=== PATIENT | female | born 1980 | race Caucasian/White ===

== ENCOUNTER 2022-05-28 10:07 | Inpatient (IN) ==
[2022-05-28] MEDS ORDERED: cefTRIAXone SODIUM 1,000 MG/50 ML BAG IV STA (11:03)
[2022-05-28 11:04] LABS: Basophils # (auto) 0.02 K/uL (0-0.2); Basophils % (auto) 0.2 %; Eosinophils # (auto) 0.04 K/uL (0-0.50); Eosinophils % (auto) 0.4 %; Hematocrit (blood only) 36.8 % (34.1-44.9); Hemoglobin 12.7 g/dl (12.0-16.0); Immature Granulocytes # (auto) 0.06 K/uL (0.00-0.02); Immature Granulocytes % (auto) 0.6 %; Lymphocytes # (auto) 1.95 K/uL (1.2-3.4); Mean Corpuscular Hemoglobin 30.3 pg (25.0-34.0); Mean Corpuscular Hgb Conc 34.5 g/dL (32.0-36.0); Mean Corpuscular Volume 87.8 fL (80.0-100.0); Mean Platelet Volume 10.3 fL (9.4-12.3); Monocytes # (auto) 0.45 K/uL (0.24-0.82); Monocytes % (auto) 4.4 %; Neutrophils # (auto) 7.73 K/uL (1.4-6.5); Neutrophils % (auto) 75.4 %; Platelet Count 357 K/uL (130-400); RDW Coefficient of Variation 13.1 % (11.5-14.5); RDW Standard Deviation 41.4 fL (36.4-46.3); Red Blood Count 4.19 M/uL (3.93-5.22); White Blood Count 10.25 K/ul (4.8-10.8)
[2022-05-28 11:31] LABS: BUN Creatinine Ratio 12.1 (10-20); Calcium 9.4 mg/dl (8.5-10.1); Creatinine Clr Calc Pharmacy 85.7 ml/min; Est GFR (African American) 92.1 ml/min; Est GFR (Non-African American) 79.5 ml/min; Potassium 4.3 mmol/L (3.5-5.1)
[2022-05-28 11:33] LABS: Troponin I High Sensitivity 15.6 pg/ml (0-14)
[2022-05-28 11:43] LABS: Albumin Level 3.9 gm/dl (3.4-5.0); Bilirubin,Total 0.5 mg/dl (0.2-1.0); Globulin 3.8 gm/dl (2.5-4.0); Magnesium 1.8 mg/dl (1.7-2.4); Phosphorus 1.3 mg/dl (2.5-4.9); Total Protein 7.7 gm/dl (6.0-8.3)
--- NOTE | 2022-05-28 11:49 | XRay Report ---
XR chest 1V portable CLINICAL HISTORY: Dysrhythmia. COMPARISON STUDY: No previous studies for comparison. TECHNIQUE: 1 view of the chest FINDINGS: Single frontal view of the chest demonstrates the cardiomediastinal silhouette to be within normal li mits. The lungs are clear of alveolar opacities. There is no evidence for pleural effusion. There is no evidence for vascular congestion. There is no acute osseous pathology. IMPRESSION: 1. No acute cardiopulmonary disease. ACT 112: Negative or not required by law. Electronically signed by: sIaac Villaseñor M.D. 05/28/2022 11:48 AM
[2022-05-28] MEDS ORDERED: SODIUM PHOSPHATE 21 MMOL in DEXTROSE 5% 500 ML IV STA (11:52)
[2022-05-28 11:59] LABS: D Dimer 750 ug/L FEU (0-500); Lyme Ab IgM w/WB Rflx Positive (Negative)
[2022-05-28 12:00] LABS: Lyme Ab IgG w/WB Rflx Positive (Negative)
--- NOTE | 2022-05-28 12:23 | History & Physical Report ---
Date of Service May 28, 2022 Assessment & Plan (1) Syncope: (2) Complete heart block by electrocardiogram: (3) Elevated troponin: (4) Hypophosphatemia: (5) Elevated LFTs: (6) Positive Lyme disease serology: Plan This is a 41 yr old F who has significant PMH of pre diabetes and subclinical hypothyroidism who presents to ED 2/2 to syncope x 1 day. Patient initially traveled to [place] 1 month ago. 1 week into trip developed symptoms concerning for facial cellulitis, swelling, pain to face and right temporal region as well as eye pain. Initially she was treated with a course of Bactrim. She followed up in clinic yesterday due to persistent swelling to right side of neck and off-and-on fevers. Initial Lyme screen at this visit was positive. Today she was out walking her dog when she sustained a syncopal episode and therefore presented to ED. Syncope Heart Block Positive Lyme Serology Admit to PCU cardiology consulted obtain echocardiogram cycle trops CTA chest and neck pending it does appear pt has had an infectious process preceding her sx of syncope and heart block; however no distinctive features of lyme other than fever, no true erythema migrans, arthralgia other tick born disease pending including Anaplasma, Babesia, alpha gal and varicella tick panel pending in [facility] from 05/27 as well Covid screen ordered tx empirically with 2g IV Rocephin daily APAP prn fever pacer pads in place Abnormality on CT neck and chest Right paratracheal soft tissue density Right paratracheal soft tissue density/inflammatory change without focal lymphadenopathy. In setting of recent infectious illness will monitor closely she will need repeat CT neck/check in 3 months consider autoimmune work up if persists Hypophosphatemia replace with sodium phosphate in ED repeat at 1800 and in a.m. Elevated LFTS likely reactive in setting of underlying infectious process, possibly lyme obtain acute hep panel Pre diabetes a1c 5.8 05/24/21 a1c in a.m. monitor fasting glucose for now DVT ppx: SQ Lovenox Dispo: PCU FULL CODE PCP: Bobo Brambila Pt was seen and examined in collaboration with Dr. Monteiro, please see addendum History of Present Illness Chief Complaint: Syncope x 1 day. Primary Care Provider: Bobo Brambila, DO This is a 41 yr old F who has significant PMH of pre diabetes and subclinical hypothyroidism who presents to ED 2/2 to syncope x 1 day. 1 month ago she was in [place]. Her sx started while in [place] about a week into the trip. She developed swelling, redness, pain to R face/neck, tenderness to pain in R temporal region and swelling of neck. She also complains of sensitivity to light and pain with moving eye to L. She was placed on bactrim due to concern for MRSA which helped with swelling, but was told to stop this yesterday. She has had persistent lymphadenopathy to right Neck. She has been having off and on low grade fever, tmax 100.8. Last fever was 2-3 days ago. Fever tends to occur in evening. She also has pain to neck moving side to side but not flexion/extension. For the past week she has been having SOB with exertion. She denies any swelling to legs. She denies any rash. She did have a red, flat rash on L anterior thigh but was not bullet like. This resolved on own and she feels was related to the sun. She denies any current N/V but 3 weeks ago she did have n/v. Today she passed out in the grass when out with her dog. She is unsure how long. It was unwitnessed. She woke up on own and wasn't quite sure where sure was or what happened. Denies incontinence of bowel or bladder. Denies any pre syncope of lightheaded/dizzy. She has hx of pre diabetes and subclinical hypothyroidism. She does not take any meds for this. Other than travel to [place] she denies any recent travel to [place] or [place]. She did recently travel to and from [place] so was sitting for prolonged period. She denies any chills or sweats, chest pain, palpitations, URI sx, n/v/d, abd, dysuria, increased urg/freq with urination, melena or hematochezia. She denies possibility of as she had her period 1 week ago and was normal for her. Also her had a vasectomy and they have not been sexually active with since last period. 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 Allergies Allergy/AdvReac Type Severity Reaction Status Date / Time No Known Allergies Allergy Unknown Verified 05/28/22 12:01 Home Medications Medication Instructions Recorded Confirmed Type acetaminophen 500 mg tablet 500 mg PO Q6H PRN Pain 05/28/22 05/28/22 History sulfamethoxazole 800 1 tab PO BID 05/28/22 05/28/22 History mg-trimethoprim 160 mg tablet Past Med/Surg History Medical History Pre-diabetes Subclinical hypothyroidism Surgical History No pertinent past surgical history Family History Grandfather Coronary heart disease Social History Smoking Status: Never smoker Hx Alcohol Use: Yes Alcohol Intake Frequency: 2-4 x/Month Hx Substance Use: No Preferred Language: Vincentian Communication Ability: Effective marital status: Current Living Situation: Spouse current occupational status: employed current occupation: paraprofessional at [employer] Feels Safe at Home: Yes Review of Systems Review of Systems: All systems reviewed & are unremarkable except as noted in HPI & below Physical Exam Physical Exam: please refer to Dr. Monteiro addendum for physical exam findings Results & Data Results & Data ([facility]) Vital Signs (Past 12 Hours) Vital Signs Temp Pulse Resp BP Pulse Ox O2 Del Method 05/28/22 11:01 58 L 17 96/69 L 99 05/28/22 10:30 57 L 109/71 100 05/28/22 10:24 59 L 116/59 L 99 05/28/22 10:37 100 Room Air 05/28/22 10:10 36.4 C L 61 17 106/68 100 Room Air Diagnostic Findings Chest X-Ray 05/28/22 10:52 XR chest 1V portable CLINICAL HISTORY: Dysrhythmia. COMPARISON STUDY: No previous studies for comparison. TECHNIQUE: 1 view of the chest FINDINGS: Single frontal view of the chest demonstrates the cardiomediastinal silhouette to be within normal limits. The lungs are clear of alveolar opacities. There is no evidence for pleural effusion. There is no evidence for vascular congestion. There is no acute osseous pathology. IMPRESSION: 1. No acute cardiopulmonary disease. ACT 112: Negative or not required by law. Electronically signed by: Isaac Villaseñor M.D. 05/28/2022 11:48 AM Chest CTA 05/28/22 12:01 CHEST CTA for PULMONARY ARTERIES CT DOSE: 661.97 mGy.cm HISTORY: Progressive shortness of breath. PE TECHNIQUE: Multiaxial CT images of the chest were performed following the intravenous administration of contrast to evaluate the pulmonary arteries. Maximal intensity projection images were also obtained. A dose lowering technique was utilized adhering to the principles of ALARA. COMPARISON STUDY: Chest 05/28/2022. FINDINGS: Limited views of the upper abdomen demonstrate normal liver and sp salvatore. The thyroid gland enhances normally. Normal esophagus. The heart is normal in size. No pleural or pericardial effusions. There is mild ill-defined right paratracheal soft tissue density/inflammatory change without focal lymphadenopathy. No associated mass effect. No hilar lymphadenopathy. Normal caliber thoracic aorta with no evidence for dissection. No filling defects within the pulmonary arteries to suggest a pulmonary embolus. No fractures within the visualized osseous structures. The central airways are patent. No focal lung consolidations to suggest pneumonia. IMPRESSION: 1. No evidence for pulmonary embolus. 2. Mild ill-defined right paratracheal soft tissue density/inflammatory change without focal lymphadenopathy. No associated mass effect. This is nonspecific and could be due to a mediastinitis. Infiltrative soft tissue could also have a similar appearance. Therefore, [address] follow-up recommended to ensure resolution of this abnormality. ACT 112: Positive. There are findings on this exam that require communication between the performing entity and the patient following Patient Test Result Information Act ([place] Act 112) guidelines. Electronically signed by: Florentin Lux M.D. 05/28/2022 1:45 PM Soft Tissue Neck CT 05/28/22 12:24 CT SCAN OF THE NECK WITH IV CONTRAST CLINICAL HISTORY: Lymphadenopathy. COMPARISON STUDY: No priors. TECHNIQUE: Following the IV administration of 120 cc of Optiray 320, CT scan of the soft tissues of the neck was performed from the skull base to the upper chest. Images are reviewed in the axial, sagittal, and coronal planes. IV contrast was administered without complication. A dose lowering technique was utilized adhering to the principles of ALARA. FINDINGS: Pharynx: The pharyngeal soft tissues are normal as visualized. The pharyngeal airway is widely patent. There is no evidence of mass lesion. The vocal cords are symmetric. The parapharyngeal fat is well maintained. The prevertebral/retropharyngeal soft tissues are within normal limits. The epiglottis is normal. Lymphadenopathy: There are numerous shotty cervical lymph nodes. These are not pathologically enlarged by size criteria and measure up to 10 mm in length. Thyroid: Normal in size and attenuation. Salivary glands: The parotid and submandibular glands are within normal limits. Brain parenchyma: The visualized brain parenchyma at the skull base is normal in appearance. Vascular structures: The carotid arteries and jugular veins are patent bilaterally. Skeletal structures: Imaged portions of the calvarium at the skull base are within normal limits. The cervical spine appears intact. Sinuses and mastoids: There is trace mucosal thickening within the maxillary antra. The remaining visualized paranasal sinuses are clear. The mastoid air cells are well pneumatized. Upper chest: Visualized apical lung parenchyma is clear. Infiltration is noted in the superior mediastinum to the level of the thoracic outlet. IMPRESSION: 1. Nonspecific soft tissue and inflammation is seen in the superior mediastinum to the level of the thoracic outlet. This could be seen in the setting of mediastinitis. Clinical correlation will be essential. 2. Numerous shotty cervical lymph nodes are nonspecific and likely reactive. Clinical follow-up to resolution is recommended. If these lymph nodes fail to resolve Realtime course then a repeat examination should be performed. 3. No pathologically enlarged cervical lymph nodes are identified. 4. The pharyngeal soft tissues are normal as visualized. ACT 112: Negative or not required by law. Electronically signed by: Yordan Langford M.D. 05/28/2022 1:41 PM Medications Administered Medication List Sodium Phosphate 21 mmol/ (Dextrose) 507 mls @ 88 mls/hr IV NOW STA Stop: 05/28/22 17:37 Last Admin: 05/28/22 12:08 Dose: 88 mls/hr Documented By: NIKI Discontinued Medications Ceftriaxone Sodium (Rocephin) 1,000 mg in 50 mls @ 100 mls/hr IV NOW STA Stop: 05/28/22 11:32 Last Infusion: 05/28/22 12:13 Dose: 0 mls/hr Documented By: Admin: 05/28/22 11:35 Dose: 100 mls/hr Documented By: NIKI ECG Rate (beats per minute): 51 Rhythm: normal sinus Findings: + complete heart block and + T-wave inversion Additional Comments: wide qrs COVID-19 Results Results COVID-19 Adm Lab Results: RBC 4.19 M/uL (3.93-5.22) 05/28/22 WBC 10.25 K/ul (4.8-10.8) 05/28/22 Hgb 12.7 g/dl (12.0-16.0) 05/28/22 Hct 36.8 % (34.1-44.9) 05/28/22 Plt Count 357 K/uL (130-400) 05/28/22 Neutrophils (%) (Auto) 75.4 % 05/28/22 Lymphocytes (%) (Auto) 19.0 % 05/28/22 Monocytes # (Auto) 0.45 K/uL (0.24-0.82) 05/28/22 Eosinophils # (Auto) 0.04 K/uL (0-0.50) 05/28/22 Immature Granulocyte % (Auto) 0.6 % 05/28/22 Neutrophils # (Auto) 7.73 K/uL (1.4-6.5) H 05/28/22 Lymphocytes # (Auto) 1.95 K/uL (1.2-3.4) 05/28/22 Monocytes # (Auto) 0.45 K/uL (0.24-0.82) 05/28/22 Eosinophils # (Auto) 0.04 K/uL (0-0.50) 05/28/22 Basophils # (Auto) 0.02 K/uL (0-0.2) 05/28/22 Immature Granulocyte # (Auto) 0.06 K/uL (0.00-0.02) H 05/28 Na 134 mmol/L (136-145) L 05/28/22 K 4.3 mmol/L (3.5-5.1) 05/28/22 Cl 102 mmol/L (98-107) 05/28/22 CO2 21 mmol/L (21-32) 05/28/22 Anion Gap 11 (3-11) 05/28/22 BUN 11 mg/dl (6-23) 05/28/22 Creatinine 0.91 mg/dl (0.6-1.2) 05/28/22 BUN/Creatinine Ratio 12.1 (10-20) 05/28/22 Glucose Level 138 mg/dl (70-99(Fasting)) H 05/28/22 Ca 9.4 mg/dl (8.5-10.1) 05/28/22 Phosphorus Level 1.3 mg/dl (2.5-4.9) L* 05/28/22 Total Bilirubin 0.5 mg/dl (0.2-1.0) 05/28/22 AST/SGOT 61 U/L (13-39) H 05/28/22 ALT/SGPT 78 U/L (7-52) H 05/28/22 Alkaline Phosphatase 156 U/L (34-104) H 05/28/22 Total Protein 7.7 gm/dl (6.0-8.3) 05/28/22 Albumin 3.9 gm/dl (3.4-5.0) 05/28/22 Globulin 3.8 gm/dl (2.5-4.0) 05/28/22 Albumin/Globulin Ratio 1.0 (0.9-2) 05/28/22 D-Dimer 750 ug/L FEU (0-500) H* 05/28/22 SARS-CoV-2, RNA, NAAT NEGATIVE (NEGATIVE) 05/28/22 Chest X-Ray 05/28/22 Code Status & VTE Plan Code Status FULL CODE Supervising Physician Co-Signing Physician Notes Pt is a 41 y/o F with hx of subclinical hypothyroidism, prediabetes admitted for syncope with bradycardia. PE: NAD, well developed HEENT: EOMI, PERRLA, no palpable lymph nodes, normal thyroid exam, lower neck did appear swollen but symmetrical Lungs: CTA, no wheezing, or crackles Card: Normal S1/S2, no murmur Abd: ND, NT, soft MSK: no LE edema Neuro: CN II-XII intact, normal motor strength Psych: AAOx3, normal affect A/P: Syncope with Bradycardia: -currently pt is asymptomatic with normal BP -EKG showed possible second degree heart block -likely due to an infection --- per pt she had R sided neck swelling/erythema with daily low grade fever few weeks ago -pending lyme, anaplasmosis, A.Phag ---- for now will treat for lyme disease with ceftriaxone 2g q24 -CTA chest/neck: no PE --- will do repeat scan in 3 months to evaluate R paratracheal soft tissue density/inflammatory change --- depending on pt's response to abx and infection work up results will consider autoimmune work as inpt vs outpt -normal TSH -replete phos and trend LFTs -Cardiology consulted -will obtain echo -admit to PCU with tele Other chronic conditions: plan as above Agree with A/P by Nickie Sims PA-C
[2022-05-28] MEDS ORDERED: OPTIRAY 320 125ml IV ONE (13:20)
--- NOTE | 2022-05-28 13:22 | Cardiology Consultation ---
Date of Consultation May 28, 2022 Assessment & Plan (1) Complete heart block by electrocardiogram: Plan Patient is a 41-year-old female without prior history of cardiac disease presents now with recent symptoms of cellulitis and erysipelas of the right face and neck with residual lymphadenopathy and tenderness. Patient sought evaluation for persistent symptoms and low-grade fever yesterday. Initial IgM Lyme screen positive yesterday and today. Patient presents now after above findings and transient syncopal event this morning while walking dog. EKG and telemetry demonstrates sinus rhythm with third-degree heart block with ventricular escape rhythm approximately 50 bpm Patient has pending CTA Recommendations: Extend CT scan to include right neck and carotids exclude carotid compression, vagal nerve impairment Blood cultures given recent infectious course Empiric treatment of Lyme disease to begin immediately External pacemaker patches already in place, no current indications for transvenous pacer insertion given adequate heart rate and hemodynamic stability Continuous telemetry Echocardiogram ordered we will review. Preliminary images from CT and chest x-ray do not suggest pericardial effusion History of Present Illness Reason for Consultation: Third-degree AV block, syncope Requesting Physician: Dr. Richard History of Present Illness Patient is a 41-year-old female with recent complex history but no prior history of cardiac disease. She presented on 05/04/2022 having recently returned from a trip to [place] with noted symptoms of marked facial erythema and swelling right neck lymphadenopathy. Patient was treated empirically for possible MRSA infection with oral Bactrim DS with slow improvement of facial issues but persistent lymphadenopathy of the right neck. Reevaluated yesterday in outpatient clinic for persistent symptoms of neck fullness low-grade fevers with laboratory panel notable for positive Lyme screen. Patient this morning was walking her dog and had a transient syncopal event and presented to the ER for further evaluation. Patient uncertain of length of unconsciousness notes no injury or bowel or bladder incontinence. Has felt weak fatigued and short of breath times greater than 1 week. She denies prior history of rheumatic fever scarlet further. Noted possible murmur as a teenager. No prior history of syncope or near syncope. No chest pains or edema or orthopnea No history of hypertension, diabetes mellitus, TIA or stroke. No history of renal or hepatic disease Notes no noted tick exposure but multiple opportunities for such walks dog with multiple ticks on dog and common in the area where she lives EKG on presentation sinus rhythm at 70 bpm with third-degree AV block, ventricular escape rhythm at 58 bpm Chest x-ray with normal size cardiac silhouette without infiltrate Allergies Allergy/AdvReac Type Severity Reaction Status Date / Time No Known Allergies Allergy Unknown Verified 05/28/22 12:01 Home Medications Medication Instructions Recorded Confirmed Type acetaminophen 500 mg tablet 500 mg PO Q6H PRN Pain 05/28/22 05/28/22 History sulfamethoxazole 800 1 tab PO BID 05/28/22 05/28/22 History mg-trimethoprim 160 mg tablet Patient History Medical History Pre-diabetes Subclinical hypothyroidism Surgical History No pertinent past surgical history Family History Grandfather Coronary heart disease Social History Smoking Status: Never smoker Hx Alcohol Use: Yes Alcohol Intake Frequency: 2-4 x/Month Hx Substance Use: No Preferred Language: Cymro Communication Ability: Effective marital status: Current Living Situation: Spouse current occupational status: employed current occupation: paraprofessional at [employer] Feels Safe at Home: Yes Review of Systems 2 Review of Systems: All systems reviewed & are unremarkable except as noted in HPI & below Physical Exam Constitutional: + ill appearing; no acute distress Eyes: PERRL, conjunctivae normal, anicteric sclerae ENMT: Right neck lymphadenopathy, tenderness Neck: trachea midline, no thyromegaly Respiratory: normal respiratory effort, lungs clear to auscultation Cardiovascular: Rate/Rhythm: regular rate Heart Sounds: normal S1 and normal S2; no murmur Vessels: no JVD Extremities: no edema Gastrointestinal (Abdomen): normal bowel sounds, soft, nontender, no hepatosplenomegaly Musculoskeletal: no cyanosis or clubbing, extremities motor strength 5/5 Psychiatric: A+Ox3, euthymic affect Results & Data ([facility]) Vital Signs (Past 12 Hours) Vital Signs Temp Pulse Resp BP Pulse Ox O2 Del Method 05/28/22 13:00 50 L 17 99 05/28/22 13:00 109/70 05/28/22 12:30 51 L 15 94 05/28/22 12:00 53 L 20 112/67 05/28/22 11:40 55 L 20 107/68 05/28/22 11:01 58 L 17 96/69 L 99 05/28/22 10:30 57 L 109/71 100 05/28/22 10:24 59 L 116/59 L 99 05/28/22 10:37 100 Room Air 05/28/22 10:10 36.4 C L 61 17 106/68 100 Room Air Laboratory Results Laboratory Results - last 24 hr 05/28/22 05/28/22 05/28/22 10:33 10:33 10:33 WBC 10.25 RBC 4.19 Hgb 12.7 Hct 36.8 MCV 87.8 MCH 30.3 MCHC 34.5 RDW Std Deviation 41.4 RDW Coeff of Armida 13.1 Plt Count 357 MPV 10.3 Immature Gran % (Auto) 0.6 Neut % (Auto) 75.4 Lymph % (Auto) 19.0 Lynn % (Auto) 4.4 Eos % (Auto) 0.4 Baso % (Auto) 0.2 Neut # (Auto) 7.73 H Lymph # (Auto) 1.95 Lynn # (Auto) 0.45 Eos # (Auto) 0.04 Baso # (Auto) 0.02 Immature Gran # (Auto) 0.06 H D-Dimer Sodium 134 L Potassium 4.3 Chloride 102 Carbon Dioxide 21 Anion Gap 11 BUN 11 Creatinine 0.91 Est Cr Clr Drug Dosing 85.7 Est GFR ( Amer) 92.1 Est GFR (Non-Af Amer) 79.5 BUN/Creatinine Ratio 12.1 Glucose 138 H Calcium 9.4 Phosphorus 1.3 L* Magnesium 1.8 Total Bilirubin 0.5 AST 61 H ALT 78 H Alkaline Phosphatase 156 H Troponin I High Sens 15.6 H Total Protein 7.7 Albumin 3.9 Globulin 3.8 Albumin/Globulin Ratio 1.0 Vtqlbcrcv-w-9,3-Gal IgE TSH 4.087 Beef Allergen IgE Ab Beef ASM Class Leblanc ASM Class Leblanc/Mutton IgE Interp Pork Allergen IgE Ab Pork ASM Class Anaplasma Smear A. phagocytophilum DNA Babesia Smear Babesia microti IgG Ab Babesia microti IgM Ab Babesia microti DNA PCR Babesia Interpretation Lyme Disease IgG Ab Lyme IgG (Western Blot) Lyme IgG 18 kDa Band Lyme IgG 23 kDa Band Lyme IgG 28 kDa Band Lyme IgG 30 kDa Band Lyme IgG 39 kDa Band Lyme IgG 41 kDa Band Lyme IgG 45 kDa Band Lyme IgG 58 kDa Band Lyme IgG 66 kDa Band Lyme IgG 93 kDa Band Lyme IgM Ab (WB) Lyme Disease IgM Ab Lyme IgM 23 kDa Band Lyme IgM 39 kDa Band Lyme IgM 41 kDa Band SARS-CoV-2, RNA, NAAT VZV IgG Antibody VZV IgM Antibody 05/28/22 05/28/22 05/28/22 10:33 10:33 10:33 WBC RBC Hgb Hct MCV MCH MCHC RDW Std Deviation RDW Coeff of Armida Plt Count MPV Immature Gran % (Auto) Neut % (Auto) Lymph % (Auto) Lynn % (Auto) Eos % (Auto) Baso % (Auto) Neut # (Auto) Lymph # (Auto) Lynn # (Auto) Eos # (Auto) Baso # (Auto) Immature Gran # (Auto) D-Dimer 750 H* Sodium Potassium Chloride Carbon Dioxide Anion Gap BUN Creatinine Est Cr Clr Drug Dosing Est GFR ( Amer) Est GFR (Non-Af Amer) BUN/Creatinine Ratio Glucose Calcium Phosphorus Magnesium Total Bilirubin AST ALT Alkaline Phosphatase Troponin I High Sens Total Protein Albumin Globulin Albumin/Globulin Ratio Adegffpmd-g-6,3-Gal IgE TSH Beef Allergen IgE Ab Beef ASM Class Leblanc ASM Class Leblanc/Mutton IgE Interp Pork Allergen IgE Ab Pork ASM Class Anaplasma Smear A. phagocytophilum DNA Babesia Smear Babesia microti IgG Ab Babesia microti IgM Ab Babesia microti DNA PCR Babesia Interpretation Lyme Disease IgG Ab Positive A Lyme IgG (Western Blot) Pending Lyme IgG 18 kDa Band Pending Lyme IgG 23 kDa Band Pending Lyme IgG 28 kDa Band Pending Lyme IgG 30 kDa Band Pending Lyme IgG 39 kDa Band Pending Lyme IgG 41 kDa Band Pending Lyme IgG 45 kDa Band Pending Lyme IgG 58 kDa Band Pending Lyme IgG 66 kDa Band Pending Lyme IgG 93 kDa Band Pending Lyme IgM Ab (WB) Pending Lyme Disease IgM Ab Positive A Lyme IgM 23 kDa Band Pending Lyme IgM 39 kDa Band Pending Lyme IgM 41 kDa Band Pending SARS-CoV-2, RNA, NAAT VZV IgG Antibody VZV IgM Antibody 05/28/22 05/28/22 05/28/22 12:37 12:37 12:37 WBC RBC Hgb Hct MCV MCH MCHC RDW Std Deviation RDW Coeff of Armida Plt Count MPV Immature Gran % (Auto) Neut % (Auto) Lymph % (Auto) Lynn % (Auto) Eos % (Auto) Baso % (Auto) Neut # (Auto) Lymph # (Auto) Lynn # (Auto) Eos # (Auto) Baso # (Auto) Immature Gran # (Auto) D-Dimer Sodium Potassium Chloride Carbon Dioxide Anion Gap BUN Creatinine Est Cr Clr Drug Dosing Est GFR ( Amer) Est GFR (Non-Af Amer) BUN/Creatinine Ratio Glucose Calcium Phosphorus Magnesium Total Bilirubin AST ALT Alkaline Phosphatase Troponin I High Sens Total Protein Albumin Globulin Albumin/Globulin Ratio Fdltpgvij-i-4,3-Gal IgE TSH Beef Allergen IgE Ab Beef ASM Class Leblanc ASM Class Leblanc/Mutton IgE Interp Pork Allergen IgE Ab Pork ASM Class Anaplasma Smear Pending A. phagocytophilum DNA Pending Babesia Smear Pending Babesia microti IgG Ab Babesia microti IgM Ab Babesia microti DNA PCR Pending Babesia Interpretation Lyme Disease IgG Ab Lyme IgG (Western Blot) Lyme IgG 18 kDa Band Lyme IgG 23 kDa Band Lyme IgG 28 kDa Band Lyme IgG 30 kDa Band Lyme IgG 39 kDa Band Lyme IgG 41 kDa Band Lyme IgG 45 kDa Band Lyme IgG 58 kDa Band Lyme IgG 66 kDa Band Lyme IgG 93 kDa Band Lyme IgM Ab (WB) Lyme Disease IgM Ab Lyme IgM 23 kDa Band Lyme IgM 39 kDa Band Lyme IgM 41 kDa Band SARS-CoV-2, RNA, NAAT VZV IgG Antibody VZV IgM Antibody 05/28/22 05/28/22 05/28/22 12:37 12:37 13:08 WBC RBC Hgb Hct MCV MCH MCHC RDW Std Deviation RDW Coeff of Armida Plt Count MPV Immature Gran % (Auto) Neut % (Auto) Lymph % (Auto) Lynn % (Auto) Eos % (Auto) Baso % (Auto) Neut # (Auto) Lymph # (Auto) Lynn # (Auto) Eos # (Auto) Baso # (Auto) Immature Gran # (Auto) D-Dimer Sodium Potassium Chloride Carbon Dioxide Anion Gap BUN Creatinine Est Cr Clr Drug Dosing Est GFR ( Amer) Est GFR (Non-Af Amer) BUN/Creatinine Ratio Glucose Calcium Phosphorus Magnesium Total Bilirubin AST ALT Alkaline Phosphatase Troponin I High Sens Total Protein Albumin Globulin Albumin/Globulin Ratio Ftofqybnu-l-0,3-Gal IgE Pending TSH Beef Allergen IgE Ab Pending Beef ASM Class Pending Leblanc ASM Class Pending Leblanc/Mutton IgE Interp Pending Pork Allergen IgE Ab Pending Pork ASM Class Pending Anaplasma Smear A. phagocytophilum DNA Babesia Smear Babesia microti IgG Ab Pending Babesia microti IgM Ab Pending Babesia microti DNA PCR Babesia Interpretation Pending Lyme Disease IgG Ab Lyme IgG (Western Blot) Lyme IgG 18 kDa Band Lyme IgG 23 kDa Band Lyme IgG 28 kDa Band Lyme IgG 30 kDa Band Lyme IgG 39 kDa Band Lyme IgG 41 kDa Band Lyme IgG 45 kDa Band Lyme IgG 58 kDa Band Lyme IgG 66 kDa Band Lyme IgG 93 kDa Band Lyme IgM Ab (WB) Lyme Disease IgM Ab Lyme IgM 23 kDa Band Lyme IgM 39 kDa Band Lyme IgM 41 kDa Band SARS-CoV-2, RNA, NAAT NEGATIVE VZV IgG Antibody Pending VZV IgM Antibody Pending Diagnostic Findings Lab work 05/27/2022: TSH normal at 3.44
[2022-05-28] MEDS ORDERED: cefTRIAXone SODIUM 1,000 MG in DEXTROSE 5% 50 ML IV ONE (13:30)
--- NOTE | 2022-05-28 13:37 | CT Scan Report ---
CT SCAN OF THE NECK WITH IV CONTRAST CLINICAL HISTORY: Lymphadenopathy. COMPARISON STUDY: No priors. TECHNIQUE: Following the IV administration of 120 cc of Optiray 320, CT scan of the soft tissues of t he neck was performed from the skull base to the upper chest. Images are reviewed in the axial, sagit darline, and coronal planes. IV contrast was administered without complication. A dose lowering techniq ue was utilized adhering to the principles of ALARA. FINDINGS: Pharynx: The pharyngeal soft tissues are normal as visualized. The pharyngeal airway is widely patent . There is no evidence of mass lesion. The vocal cords are symmetric. The parapharyngeal fat is well maintained. The prevertebral/retropharyngeal soft tissues are within normal limits. The epiglottis is normal. Lymphadenopathy: There are numerous shotty cervical lymph nodes. These are not pathologically enlarge d by size criteria and measure up to 10 mm in length. Thyroid: Normal in size and attenuation. Salivary glands: The parotid and submandibular glands are within normal limits. Brain parenchyma: The visualized brain parenchyma at the skull base is normal in appearance. Vascular structures: The carotid arteries and jugular veins are patent bilaterally. Skeletal structures: Imaged portions of the calvarium at the skull base are within normal limits. The cervical spine appears intact. Sinuses and mastoids: There is trace mucosal thickening within the maxillary antra. The remaining vis ualized paranasal sinuses are clear. The mastoid air cells are well pneumatized. Upper chest: Visualized apical lung parenchyma is clear. Infiltration is noted in the superior medias tinum to the level of the thoracic outlet. IMPRESSION: 1. Nonspecific soft tissue and inflammation is seen in the superior mediastinum to the level of the t horacic outlet. This could be seen in the setting of mediastinitis. Clinical correlation will be esse ntial. 2. Numerous shotty cervical lymph nodes are nonspecific and likely reactive. Clinical follow-up to re solution is recommended. If these lymph nodes fail to resolve Realtime course then a repeat examinati on should be performed. 3. No pathologically enlarged cervical lymph nodes are identified. 4. The pharyngeal soft tissues are normal as visualized. ACT 112: Negative or not required by law. Electronically signed by: Yordan Langford M.D. 05/28/2022 1:41 PM
--- NOTE | 2022-05-28 13:47 | CT Scan Report ---
CHEST CTA for PULMONARY ARTERIES CT DOSE: 661.97 mGy.cm HISTORY: Progressive shortness of breath. PE TECHNIQUE: Multiaxial CT images of the chest were performed following the intravenous administration of contrast to evaluate the pulmonary arteries. Maximal intensity projection images were also obtaine d. A dose lowering technique was utilized adhering to the principles of ALARA. COMPARISON STUDY: Chest 05/28/2022. FINDINGS: Limited views of the upper abdomen demonstrate normal liver and spleen. The thyroid gland e nhances normally. Normal esophagus. The heart is normal in size. No pleural or pericardial effusions. There is mild ill-defined right paratracheal soft tissue density/inflammatory change without focal l ymphadenopathy. No associated mass effect. No hilar lymphadenopathy. Normal caliber thoracic aorta wi th no evidence for dissection. No filling defects within the pulmonary arteries to suggest a pulmonar y embolus. No fractures within the visualized osseous structures. The central airways are patent. No focal lung consolidations to suggest pneumonia. IMPRESSION: 1. No evidence for pulmonary embolus. 2. Mild ill-defined right paratracheal soft tissue density/inflammatory change without focal lymphade nopathy. No associated mass effect. This is nonspecific and could be due to a mediastinitis. Infiltra tive soft tissue could also have a similar appearance. Therefore, [address] follow-up recommen ded to ensure resolution of this abnormality. ACT 112: Positive. There are findings on this exam that require communication between the performing entity and the patient following Patient Test Result Information Act ([place] Act 112) guidelines. Electronically signed by: Florentin Lux M.D. 05/28/2022 1:45 PM
--- NOTE | 2022-05-28 15:33 | Emergency Department Note ---
Impression & Plan Complete heart block by electrocardiogram, Positive Lyme disease serology, Syncope and collapse, Hypophosphatemia ED Provider Note CHIEF COMPLAINT: Shortness of breath HISTORY OF PRESENT ILLNESS: This 41-year-old female patient presents to the emergency department with complaints of shortness of breath over the last several days to weeks. Patient states she had a rash on the right side of her neck about 2 weeks ago. It does seem to be resolving at this time however she thinks the lymph nodes are persistently swollen. She was placed on Bactrim recently which she thinks may have helped the rash. Patient was seen by her PCP yesterday and had a chest x-ray performed some laboratory work. She looked on the portal today through [facility] and believes her Lyme tests are positive. Agustin carr denies any high fevers but states she has been cycling near 100 occasionally. She denies any coughing, abdominal pain, vomiting or diarrhea. REVIEW OF SYSTEMS: A review of systems was performed with positives and pertinent negatives listed in the history of present illness. 10 systems were reviewed and are otherwise negative. ALLERGIES: see below MEDICATIONS: see below PMH: see below SOCIAL HISTORY: see below DDx:Reactive airway disease, pneumonia, pneumothorax, COPD, CHF, infections, cardiac ischemia, pulmonary embolism, musculoskeletal, gastrointestinal, as well as other pathologies. PHYSICAL EXAM: Vital signs reviewed. General: Well-appearing 41-year-old female, in no significant distress. HEENT: No scleral icterus, PERRLA, neck supple. Atraumatic. Cardiovascular: Bradycardic and irregular Pulmonary: Clear to auscultation bilaterally, normal work of breathing. Abdomen: Soft, nontender, nondistended, positive bowel sounds. Musculoskeletal: Atraumatic, no peripheral edema. Neurologic: Patient awake alert and oriented x 3, speech is clear Lymph: Right greater than left cervical lymphadenopathy noted, no palpable fluctuance or mass. Skin: Warm, dry, no rash. EMERGENCY DEPARTMENT COURSE/MDM: This patient was evaluated and appeared to be in no significant distress. IV access was obtained and laboratory work was drawn. The patient was placed on the cardiac rehab nurse and noted to be in a third-degree heart block. There is some cervical lymphadenopathy noted on exam, the area of erythema around the right neck and ear that the patient described is no longer notable. Patient's blood pressure has remained stable. Laboratory work through the [facility] system was reviewed and her Lyme screen was positive. IgM and IgG are positive on today's labs. Phosphorus is noted to be markedly low. This was repleted intravenously. Patient was given IV ceftriaxone. D- dimer is noted to be elevated and a CT scan of the chest was ordered. Dr. Olivares has requested CT imaging of the soft tissue neck which was added. Patient's case was discussed with [facility] cardiology as well as the hospitalist service. MONITORING: An order for cardiac monitoring was placed and the patient is noted to be in a third-degree AV block at 57 beats per minute. RADIOLOGY: See below EKG: Sinus rhythm with complete heart block at a rate of 58 bpm. Rightward axis, possible previous septal infarct, T wave abnormality noted in the inferior and anterior leads. QTC is 451. No previous EKGs for comparison. DISPOSITION: Admission I have personally spent 40 minutes of critical care time in the direct management of this patient. This was a life/limb threatening event. This 40 minutes is in excess of all separately billable procedures. 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 Beliefs That Will Affect Care: None marital status: Current Living Situation: Spouse current occupational status: employed current occupation: paraprofessional at [employer] How many Children do You have: 2 Feels Safe at Home: Yes Assistive Devices: None Allergies Allergies Allergy/AdvReac Type Severity Reaction Status Date / Time No Known Allergies Allergy Unknown Verified 05/28/22 12:01 Home Meds Home Medications Medication Instructions Recorded Confirmed acetaminophen 500 mg tablet 500 mg PO Q6H PRN Pain 05/28/22 05/28/22 Previous Rx's Medication Instructions Recorded doxycycline hyclate 100 mg capsule 100 mg PO BID 14 days #28 caps 06/01/22 Results & Data (ED) Vital Signs Vital Signs - 24 hr 05/28/22 10:10 05/28/22 10:37 05/28/22 10:38 Temperature 36.4 C L Temperature Source Oral Pulse Rate 61 Pulse Rhythm Regular Respiratory Rate 17 Respiratory Effort / Characteristics Non-Labored Spontaneous Spontaneous Respiratory Depth Normal Respiratory Pattern Regular Blood Pressure 106/68 Blood Pressure Mean 80 Blood Pressure Position Sitting Pulse Oximetry 100 100 Oxygen Delivery Method Room Air Room Air Sepsis Recent Fever Within 48 Hours No Sepsis New/Unexplained Change in Mental Status No Sepsis Action Taken by Nursing No Action Required 05/28/22 10:24 05/28/22 10:30 05/28/22 11:01 Temperature Temperature Source Pulse Rate 59 L 57 L 58 L Pulse Rhythm Respiratory Rate 17 Respiratory Effort / Characteristics Respiratory Depth Respiratory Pattern Blood Pressure 116/59 L 109/71 96/69 L Blood Pressure Mean 78 83 78 Blood Pressure Position Pulse Oximetry 99 100 99 Oxygen Delivery Method Sepsis Recent Fever Within 48 Hours Sepsis New/Unexplained Change in Mental Status Sepsis Action Taken by Nursing 05/28/22 11:40 05/28/22 12:00 Temperature Temperature Source Pulse Rate 55 L 53 L Pulse Rhythm Respiratory Rate 20 20 Respiratory Effort / Characteristics Respiratory Depth Respiratory Pattern Blood Pressure 107/68 112/67 Blood Pressure Mean 81 82 Blood Pressure Position Pulse Oximetry Oxygen Delivery Method Sepsis Recent Fever Within 48 Hours Sepsis New/Unexplained Change in Mental Status Sepsis Action Taken by Custodial Medications Current Medication List: was personally reviewed by me Laboratory Data Attestation: I reviewed the patient's lab results. Result diagrams: 05/30/22 08:47 05/30/22 08:47 Lab Results 05/28/22 05/28/22 05/28/22 Range/Units 10:33 10:33 10:33 WBC 10.25 (4.8-10.8) K/ul RBC 4.19 (3.93-5.22) M/uL Hgb 12.7 (12.0-16.0) g/dl Hct 36.8 (34.1-44.9) % MCV 87.8 (80.0-100.0) fL MCH 30.3 (25.0-34.0) pg MCHC 34.5 (32.0-36.0) g/dL RDW Std Deviation 41.4 (36.4-46.3) fL RDW Coeff of Armida 13.1 (11.5-14.5) % Plt Count 357 (130-400) K/uL MPV 10.3 (9.4-12.3) fL Immature Gran % (Auto) 0.6 % Neut % (Auto) 75.4 % Lymph % (Auto) 19.0 % [place] % (Auto) 4.4 % Eos % (Auto) 0.4 % Baso % (Auto) 0.2 % Neut # (Auto) 7.73 H (1.4-6.5) K/uL Lymph # (Auto) 1.95 (1.2-3.4) K/uL [place] # (Auto) 0.45 (0.24-0.82) K/uL Eos # (Auto) 0.04 (0-0.50) K/uL Baso # (Auto) 0.02 (0-0.2) K/uL Immature Gran # (Auto) 0.06 H (0.00-0.02) K/uL D-Dimer (0-500) ug/L FEU Sodium 134 L (136-145) mmol/L Potassium 4.3 (3.5-5.1) mmol/L Chloride 102 (98-107) mmol/L Carbon Dioxide 21 (21-32) mmol/L Anion Gap 11 (3-11) BUN 11 (6-23) mg/dl Creatinine 0.91 (0.6-1.2) mg/dl Est Cr Clr Drug Dosing 85.7 ml/min Est GFR ( Amer) 92.1 ml/min Est GFR (Non-Af Amer) 79.5 ml/min BUN/Creatinine Ratio 12.1 (10-20) Glucose 138 H (70-99(Fasting)) mg/dl Calcium 9.4 (8.5-10.1) mg/dl Phosphorus 1.3 L* (2.5-4.9) mg/dl Magnesium 1.8 (1.7-2.4) mg/dl Total Bilirubin 0.5 (0.2-1.0) mg/dl AST 61 H (13-39) U/L ALT 78 H (7-52) U/L Alkaline Phosphatase 156 H (34-104) U/L Troponin I High Sens 15.6 H (0-14) pg/ml Total Protein 7.7 (6.0-8.3) gm/dl Albumin 3.9 (3.4-5.0) gm/dl Globulin 3.8 (2.5-4.0) gm/dl Albumin/Globulin Ratio 1.0 (0.9-2) TSH 4.087 (0.300-4.500) uIu/ml Lyme Disease IgG Ab (Negative) Lyme IgG (Western Blot) (NEGATIVE) Lyme IgG 18 kDa Band Lyme IgG 23 kDa Band Lyme IgG 28 kDa Band Lyme IgG 30 kDa Band Lyme IgG 39 kDa Band Lyme IgG 41 kDa Band Lyme IgG 45 kDa Band Lyme IgG 58 kDa Band Lyme IgG 66 kDa Band Lyme IgG 93 kDa Band Lyme IgM Ab (WB) (NEGATIVE) Lyme Disease IgM Ab (Negative) Lyme IgM 23 kDa Band Lyme IgM 39 kDa Band Lyme IgM 41 kDa Band 05/28/22 05/28/22 05/28/22 Range/Units 10:33 10:33 10:33 WBC (4.8-10.8) K/ul RBC (3.93-5.22) M/uL Hgb (12.0-16.0) g/dl Hct (34.1-44.9) % MCV (80.0-100.0) fL MCH (25.0-34.0) pg MCHC (32.0-36.0) g/dL RDW Std Deviation (36.4-46.3) fL RDW Coeff of Armida (11.5-14.5) % Plt Count (130-400) K/uL MPV (9.4-12.3) fL Immature Gran % (Auto) % Neut % (Auto) % Lymph % (Auto) % [place] % (Auto) % Eos % (Auto) % Baso % (Auto) % Neut # (Auto) (1.4-6.5) K/uL Lymph # (Auto) (1.2-3.4) K/uL [place] # (Auto) (0.24-0.82) K/uL Eos # (Auto) (0-0.50) K/uL Baso # (Auto) (0-0.2) K/uL Immature Gran # (Auto) (0.00-0.02) K/uL D-Dimer 750 H* (0-500) ug/L FEU Sodium (136-145) mmol/L Potassium (3.5-5.1) mmol/L Chloride (98-107) mmol/L Carbon Dioxide (21-32) mmol/L Anion Gap (3-11) BUN (6-23) mg/dl Creatinine (0.6-1.2) mg/dl Est Cr Clr Drug Dosing ml/min Est GFR ( Amer) ml/min Est GFR (Non-Af Amer) ml/min BUN/Creatinine Ratio (10-20) Glucose (70-99(Fasting)) mg/dl Calcium (8.5-10.1) mg/dl Phosphorus (2.5-4.9) mg/dl Magnesium (1.7-2.4) mg/dl Total Bilirubin (0.2-1.0) mg/dl AST (13-39) U/L ALT (7-52) U/L Alkaline Phosphatase (34-104) U/L Troponin I High Sens (0-14) pg/ml Total Protein (6.0-8.3) gm/dl Albumin (3.4-5.0) gm/dl Globulin (2.5-4.0) gm/dl Albumin/Globulin Ratio (0.9-2) TSH (0.300-4.500) uIu/ml Lyme Disease IgG Ab Positive A (Negative) Lyme IgG (Western Blot) POSITIVE A (NEGATIVE) Lyme IgG 18 kDa Band REACTIVE A Lyme IgG 23 kDa Band REACTIVE A Lyme IgG 28 kDa Band NON-REACTIVE Lyme IgG 30 kDa Band NON-REACTIVE Lyme IgG 39 kDa Band REACTIVE A Lyme IgG 41 kDa Band REACTIVE A Lyme IgG 45 kDa Band NON-REACTIVE Lyme IgG 58 kDa Band REACTIVE A Lyme IgG 66 kDa Band NON-REACTIVE Lyme IgG 93 kDa Band NON-REACTIVE Lyme IgM Ab (WB) POSITIVE A (NEGATIVE) Lyme Disease IgM Ab Positive A (Negative) Lyme IgM 23 kDa Band REACTIVE A Lyme IgM 39 kDa Band REACTIVE A Lyme IgM 41 kDa Band REACTIVE A Administered Medications Discontinued Medications Enoxaparin Sodium (Enoxaparin Inj 40 Mg/0.4 Ml Syr) 40 mg SQ HS JOLIE Stop: 06/27/22 20:59 Last Admin: 05/31/22 20:30 Dose: 40 mg Documented By: Admin: 05/30/22 21:16 Dose: 40 mg Documented By: Admin: 05/29/22 20:22 Dose: 40 mg Documented By: Admin: 05/28/22 21:30 Dose: 40 mg Documented By: SANTI Ceftriaxone Sodium (Rocephin) 1,000 mg in 50 mls @ 100 mls/hr IV NOW STA Stop: 05/28/22 11:32 Last Infusion: 05/28/22 12:13 Dose: 0 mls/hr Documented By: Admin: 05/28/22 11:35 Dose: 100 mls/hr Documented By: NIKI Sodium Phosphate 21 mmol/ (Dextrose) 507 mls @ 88 mls/hr IV NOW STA Stop: 05/28/22 17:37 Last Infusion: 05/28/22 18:26 Dose: 0 mls/hr Documented By: Admin: 05/28/22 12:08 Dose: 88 mls/hr Documented By: NIKI Ceftriaxone Sodium 1,000 mg/ (Dextrose) 60 mls @ 120 mls/hr IV NOW ONE Stop: 05/28/22 13:59 Last Infusion: 05/28/22 15:32 Dose: 0 mls/hr Documented By: Admin: 05/28/22 13:56 Dose: 120 mls/hr Documented By: NIKI Ceftriaxone Sodium 2,000 mg/ (Dextrose) 70 mls @ 100 mls/hr IV DAILY JOLIE; Protocol Stop: 06/08/22 08:59 Last Infusion: 06/01/22 08:36 Dose: 0 mls/hr Documented By: Admin: 06/01/22 08:01 Dose: 100 mls/hr Documented By: Infusion: 05/31/22 09:17 Dose: 0 mls/hr Documented By: Admin: 05/31/22 08:18 Dose: 100 mls/hr Documented By: Infusion: 05/30/22 10:27 Dose: 0 mls/hr Documented By: Admin: 05/30/22 09:45 Dose: 100 mls/hr Documented By: Infusion: 05/29/22 09:16 Dose: 0 mls/hr Documented By: Admin: 05/29/22 08:17 Dose: 100 mls/hr Documented By: DTT Sodium Phosphate 24 mmol/ (Dextrose) 508 mls @ 88 mls/hr IV ONE ONE Stop: 05/29/22 01:16 Last Infusion: 05/29/22 02:44 Dose: 0 mls/hr Documented By: Admin: 05/28/22 19:55 Dose: 88 mls/hr Documented By: ROMY Ioversol (Optiray 320 125ml) 120 ml IV ONCE ONE Stop: 05/28/22 13:21 Last Admin: 05/28/22 13:21 Dose: 120 ml Documented By: SHELLIE Potassium Chloride (Potassium Chloride Crtab 20 Meq Tabcr) 40 meq PO NOW STA Stop: 05/29/22 08:24 Last Admin: 05/29/22 08:59 Dose: 40 meq Documented By: DTT Imaging Data Radiologist's Impression: Chest X-Ray 05/28/22 10:52 XR chest 1V portable CLINICAL HISTORY: Dysrhythmia. COMPARISON STUDY: No previous studies for comparison. TECHNIQUE: 1 view of the chest FINDINGS: Single frontal view of the chest demonstrates the cardiomediastinal silhouette to be within normal limits. The lungs are clear of alveolar opacities. There is no evidence for pleural effusion. There is no evidence for vascular congestion. There is no acute osseous pathology. IMPRESSION: 1. No acute cardiopulmonary disease. ACT 112: Negative or not required by law. Electronically signed by: Isaac Villaseñor M.D. 05/28/2022 11:48 AM Chest CTA 05/28/22 12:01 CHEST CTA for PULMONARY ARTERIES CT DOSE: 661.97 mGy.cm HISTORY: Progressive shortness of breath. PE TECHNIQUE: Multiaxial CT images of the chest were performed following the intravenous administration of contrast to evaluate the pulmonary arteries. Maximal intensity projection images were also obtained. A dose lowering technique was utilized adhering to the principles of ALARA. COMPARISON STUDY: Chest 05/28/2022. FINDINGS: Limited views of the upper abdomen demonstrate normal liver and spleen. The thyroid gland enhances normally. Normal esophagus. The heart is normal in size. No pleural or pericardial effusions. There is mild ill-defined right paratracheal soft tissue density/inflammatory change without focal lymphadenopathy. No associated mass effect. No hilar lymphadenopathy. Normal caliber thoracic aorta with no evidence for dissection. No filling defects within the pulmonary arteries to suggest a pulmonary embolus. No fractures wit hin the visualized osseous structures. The central airways are patent. No focal lung consolidations to suggest pneumonia. IMPRESSION: 1. No evidence for pulmonary embolus. 2. Mild ill-defined right paratracheal soft tissue density/inflammatory change without focal lymphadenopathy. No associated mass effect. This is nonspecific and could be due to a mediastinitis. Infiltrative soft tissue could also have a similar appearance. Therefore, [address] follow-up recommended to ensure resolution of this abnormality. ACT 112: Positive. There are findings on this exam that require communication between the performing entity and the patient following Patient Test Result Information Act ([place] Act 112) guidelines. Electronically signed by: Florentin Lux M.D. 05/28/2022 1:[address] 05/28/22 12:24 CT SCAN OF THE NECK WITH IV CONTRAST CLINICAL HISTORY: Lymphadenopathy. COMPARISON STUDY: No priors. TECHNIQUE: Following the IV administration of 120 cc of Optiray 320, CT scan of the soft tissues of the neck was performed from the skull base to the upper chest. Images are reviewed in the axial, sagittal, and coronal planes. IV contrast was administered without complication. A dose lowering technique was utilized adhering to the principles of ALARA. FINDINGS: Pharynx: The pharyngeal soft tissues are normal as visualized. The pharyngeal airway is widely patent. There is no evidence of mass lesion. The vocal cords are symmetric. The parapharyngeal fat is well maintained. The prevertebral/retropharyngeal soft tissues are within normal limits. The epiglottis is normal. Lymphadenopathy: There are numerous shotty cervical lymph nodes. These are not pathologically enlarged by size criteria and measure up to 10 mm in length. Thyroid: Normal in size and attenuation. Salivary glands: The parotid and submandibular glands are within normal limits. Brain parenchyma: The visualized brain parenchyma at the skull base is normal in appearance. Vascular structures: The carotid arteries and jugular veins are patent bilaterally. Skeletal structures: Imaged portions of the calvarium at the skull base are within normal limits. The cervical spine appears intact. Sinuses and mastoids: There is trace mucosal thickening within the maxillary antra. The remaining visualized paranasal sinuses are clear. The mastoid air cells are well pneumatized. Upper chest: Visualized apical lung parenchyma is clear. Infiltration is noted in the superior mediastinum to the level of the thoracic outlet. IMPRESSION: 1. Nonspecific soft tissue and inflammation is seen in the superior mediastinum to the level of the thoracic outlet. This could be seen in the setting of medias tinitis. Clinical correlation will be essential. 2. Numerous shotty cervical lymph nodes are nonspecific and likely reactive. Clinical follow-up to resolution is recommended. If these lymph nodes fail to resolve Realtime course then a repeat examination should be performed. 3. No pathologically enlarged cervical lymph nodes are identified. 4. The pharyngeal soft tissues are normal as visualized. ACT 112: Negative or not required by law. Electronically signed by: Yordan Langofrd M.D. 05/28/2022 1:41 PM Blood Pressure Blood Pressure Findings: Normal blood pressure Blood Pressure Disposition: did not require urgent referral Discharge Plan Visit Data Chief Complaint: Shortness of Breath/Dyspnea Stated Complaint: INFECTION, SOB, FAINTED 45 MINS AGO ED Provider: Chasidy Richard Discharge Problem: Complete heart block by electrocardiogram, Positive Lyme disease serology, Syncope and collapse, Hypophosphatemia Patient Disposition: Admitted As Inpatient Discharge Instructions Interventions: ED Discharge Assessment Last Done: 05/28/22 13:45
[2022-05-28] MEDS ORDERED: ONDANSETRON INJ 2 MG/ML 2 ML VIAL IV PRN (16:00)
[2022-05-28] MEDS ORDERED: POLYETHYLENE (MIRALAX) 17 GM PACK PO PRN (16:00)
[2022-05-28] MEDS ORDERED: ACETAMINOPHEN 325 MG TAB PO PRN (16:00)
[2022-05-28] MEDS ORDERED: ALUMINUM/MAGNESIUM SUSP 30 ML UDC PO PRN (16:00)
[2022-05-28] MEDS ORDERED: MAGNESIUM HYDROXIDE SUSP 30 ML UDC PO PRN (16:00)
--- NOTE | 2022-05-28 17:21 | Electrocardiogram Report ---
Test Reason : Blood Pressure : / mmHG Vent. Rate : 058 BPM Atrial Rate : 078 BPM P-R Int : 000 ms QRS Dur : 126 ms QT Int : 460 ms P-R-T Axes : 070 097 -37 degrees QTc Int : 451 ms Sinus rhythm with complete heart block with ventricular escape rhythm Rightward axis Non-specific intra-ventricular conduction block Cannot rule out Septal infarct , age undetermined T wave abnormality, consider inferior ischemia T wave abnormality, consider anterior ischemia Abnormal ECG No previous ECGs available Confirmed by Oj Moulton ([id number]) on 05/28/2022 5:21:19 PM Referred By: REFERRED SELF Confirmed By:Oj Moulton
[2022-05-28] MEDS ORDERED: SODIUM PHOSPHATE 3 MMOL/1 ML INFUSION IV STA (19:06)
[2022-05-28] MEDS ORDERED: SODIUM PHOSPHATE 24 MMOL in DEXTROSE 5% 500 ML IV ONE (19:30)
[2022-05-28] MEDS: ENOXAPARIN INJ 40 MG/0.4 ML SYR SQ SCH (21:30)
[2022-05-29 06:58] LABS: Estimated Average Glucose 134 mg/dl; Hemoglobin A1C 6.3 % (4.5-5.6)
[2022-05-29 07:04] LABS: Albumin Globulin Ratio 1.1 (0.9-2); Albumin Level 3.4 gm/dl (3.4-5.0); BUN Creatinine Ratio 7.4 (10-20); Bilirubin,Total 0.4 mg/dl (0.2-1.0); Calcium 8.4 mg/dl (8.5-10.1); Creatinine Clr Calc Pharmacy 116.3 ml/min; Est GFR (African American) 127.7 ml/min; Est GFR (Non-African American) 110.2 ml/min; Globulin 3.1 gm/dl (2.5-4.0); Phosphorus 3.9 mg/dl (2.5-4.9); Potassium 3.6 mmol/L (3.5-5.1); Total Protein 6.5 gm/dl (6.0-8.3)
[2022-05-29] MEDS: cefTRIAXone SODIUM 2,000 MG in DEXTROSE 5% 50 ML IV SCH (08:17)
[2022-05-29] MEDS ORDERED: POTASSIUM CHLORIDE CRTAB 20 MEQ TABCR PO STA (08:23)
[2022-05-29 11:26] LABS: HBSAG NON-REACTIVE (NON-REACTIVE); Hepatitis A Antibody IgM NON-REACTIVE (NON-REACTIVE); Hepatitis B Core Antibody IgM NON-REACTIVE (NON-REACTIVE)
--- NOTE | 2022-05-29 11:28 | Cardiology Progress Note ---
Date of Service May 29, 2022 Assessment & Plan (1) Complete heart block by electrocardiogram: Plan Patient is a 41-year-old female without prior history of cardiac disease presents now with recent symptoms of cellulitis and erysipelas of the right face and neck with residual lymphadenopathy and tenderness. Patient sought evaluation for persistent symptoms and low-grade fever yesterday. Initial IgM Lyme screen positive yesterday and today. Patient presents now after above fin dings and transient syncopal event this morning while walking dog. Initial EKG and telemetry demonstrates sinus rhythm with third-degree heart block with ventricular escape rhythm approximately 50 bpm Impression: Third-degree AV block with junctional escape rhythm today. QRS duration has narrowed. 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 No indications for temporary pacemaker Continue antibiotic therapy for presumed Lyme carditis full titers pending Admission and Anticipated Discharge Date Admission Date: May 28, 2022 Subjective Patient was seen and examined, chart, medications, telemetry reviewed. Feels somewhat better this morning neck no longer is sore but still stiff. No fevers or chills. No dizziness or lightheadedness up in room without difficulty. On telemetry patient remains in third-degree AV block with junctional escape rhythm rate 45-50 no pauses or tachycardia Review of Systems Review of Systems: All systems reviewed & are unremarkable except as noted in Subjective Physical Exam Constitutional: no acute distress Eyes: PERRL, conjunctivae normal, anicteric sclerae Neck: trachea midline, no thyromegaly Mildly tender right neck lymphadenopathy Respiratory: normal respiratory effort, lungs clear to auscultation Cardiovascular: Rate/Rhythm: regular rate Heart Sounds: normal S1 and normal S2; no murmur Vessels: no JVD Extremities: no edema Gastrointestinal (Abdomen): normal bowel sounds, soft, nontender, no hepatosplenomegaly Musculoskeletal: no cyanosis or clubbing, extremities motor strength 5/5 Psychiatric: A+Ox3, euthymic affect Results & Data ([facility]) Vital Signs (Past 12 Hours) Vital Signs Temp Pulse Pulse Resp BP Pulse Ox O2 Del Method 05/29/22 11:15 36.6 C 45 L 16 109/66 94 Room Air 05/29/22 07:56 41 L 05/29/22 07:53 Room Air 05/29/22 07:28 36.8 C 40 L 12 109/67 97 Room Air 05/29/22 04:23 36.7 C 43 L 18 101/56 L 96 Room Air Laboratory Results Laboratory Results - last 24 hr 05/28/22 05/28/22 05/28/22 10:33 10:33 10:33 WBC RBC Hgb Hct MCV MCH MCHC Plt Count D-Dimer Sodium 134 L Potassium 4.3 Chloride 102 Carbon Dioxide 21 Anion Gap 11 BUN 11 Creatinine 0.91 Est Cr Clr Drug Dosing 85.7 Est GFR ( Amer) 92.1 Est GFR (Non-Af Amer) 79.5 BUN/Creatinine Ratio 12.1 Glucose 138 H Estimat Average Glucose Hemoglobin A1c Calcium 9.4 Phosphorus 1.3 L* Magnesium 1.8 Total Bilirubin 0.5 AST 61 H ALT 78 H Alkaline Phosphatase 156 H Troponin I High Sens 15.6 H Total Protein 7.7 Albumin 3.9 Globulin 3.8 Albumin/Globulin Ratio 1.0 Cfkysysao-p-8,3-Gal IgE TSH 4.087 Beef Allergen IgE Ab Beef ASM Class Leblanc ASM Class Leblanc/Mutton IgE Interp Pork Allergen IgE Ab Pork ASM Class POC Ur Test Anaplasma Smear A. phagocytophilum DNA Babesia Smear Babesia microti IgG Ab Babesia microti IgM Ab Babesia microti DNA PCR Babesia Interpretation Lyme Disease IgG Ab Positive A Lyme IgG (Western Blot) Lyme IgG 18 kDa Band Lyme IgG 23 kDa Band Lyme IgG 28 kDa Band Lyme IgG 30 kDa Band Lyme IgG 39 kDa Band Lyme IgG 41 kDa Band Lyme IgG 45 kDa Band Lyme IgG 58 kDa Band Lyme IgG 66 kDa Band Lyme IgG 93 kDa Band Lyme IgM Ab (WB) Lyme Disease IgM Ab Positive A Lyme IgM 23 kDa Band Lyme IgM 39 kDa Band Lyme IgM 41 kDa Band Hepatitis A IgM Ab Hep Bs Antigen Hep Bs Ag Confirmation Hep B Core IgM Ab Hepatitis C Ab (EIA) Hep C Ab Signal/Cutoff SARS-CoV-2, RNA, NAAT VZV IgG Antibody VZV IgM Antibody 05/28/22 05/28/22 05/28/22 10:33 10:33 12:37 WBC RBC Hgb Hct MCV MCH MCHC Plt Count D-Dimer 750 H* Sodium Potassium Chloride Carbon Dioxide Anion Gap BUN Creatinine Est Cr Clr Drug Dosing Est GFR ( Amer) Est GFR (Non-Af Amer) BUN/Creatinine Ratio Glucose Estimat Average Glucose Hemoglobin A1c Calcium Phosphorus Magnesium Total Bilirubin AST ALT Alkaline Phosphatase Troponin I High Sens Total Protein Albumin Globulin Albumin/Globulin Ratio Gbnlvzzjm-i-2,3-Gal IgE TSH Beef Allergen IgE Ab Beef ASM Class Leblanc ASM Class Leblanc/Mutton IgE Interp Pork Allergen IgE Ab Pork ASM Class POC Ur Test Anaplasma Smear See Comment A. phagocytophilum DNA Babesia Smear See Comment Babesia microti IgG Ab Babesia microti IgM Ab Babesia microti DNA PCR Babesia Interpretation Lyme Disease IgG Ab Lyme IgG (Western Blot) Pending Lyme IgG 18 kDa Band Pending Lyme IgG 23 kDa Band Pending Lyme IgG 28 kDa Band Pending Lyme IgG 30 kDa Band Pending Lyme IgG 39 kDa Band Pending Lyme IgG 41 kDa Band Pending Lyme IgG 45 kDa Band Pending Lyme IgG 58 kDa Band Pending Lyme IgG 66 kDa Band Pending Lyme IgG 93 kDa Band Pending Lyme IgM Ab (WB) Pending Lyme Disease IgM Ab Lyme IgM 23 kDa Band Pending Lyme IgM 39 kDa Band Pending Lyme IgM 41 kDa Band Pending Hepatitis A IgM Ab Hep Bs Antigen Hep Bs Ag Confirmation Hep B Core IgM Ab Hepatitis C Ab (EIA) Hep C Ab Signal/Cutoff SARS-CoV-2, RNA, NAAT VZV IgG Antibody VZV IgM Antibody 05/28/22 05/28/22 05/28/22 12:37 12:37 12:37 WBC RBC Hgb Hct MCV MCH MCHC Plt Count D-Dimer Sodium Potassium Chloride Carbon Dioxide Anion Gap BUN Creatinine Est Cr Clr Drug Dosing Est GFR ( Amer) Est GFR (Non-Af Amer) BUN/Creatinine Ratio Glucose Estimat Average Glucose Hemoglobin A1c Calcium Phosphorus Magnesium Total Bilirubin AST ALT Alkaline Phosphatase Troponin I High Sens Total Protein Albumin Globulin Albumin/Globulin Ratio Dwnrqiyoh-j-8,3-Gal IgE TSH Beef Allergen IgE Ab Beef ASM Class Leblanc ASM Class Leblanc/Mutton IgE Interp Pork Allergen IgE Ab Pork ASM Class POC Ur Test Anaplasma Smear A. phagocytophilum DNA Pending Babesia Smear Babesia microti IgG Ab Pending Babesia microti IgM Ab Pending Babesia microti DNA PCR Pending Babesia Interpretation Pending Lyme Disease IgG Ab Lyme IgG (Western Blot) Lyme IgG 18 kDa Band Lyme IgG 23 kDa Band Lyme IgG 28 kDa Band Lyme IgG 30 kDa Band Lyme IgG 39 kDa Band Lyme IgG 41 kDa Band Lyme IgG 45 kDa Band Lyme IgG 58 kDa Band Lyme IgG 66 kDa Band Lyme IgG 93 kDa Band Lyme IgM Ab (WB) Lyme Disease IgM Ab Lyme IgM 23 kDa Band Lyme IgM 39 kDa Band Lyme IgM 41 kDa Band Hepatitis A IgM Ab Hep Bs Antigen Hep Bs Ag Confirmation Hep B Core IgM Ab Hepatitis C Ab (EIA) Hep C Ab Signal/Cutoff SARS-CoV-2, RNA, NAAT VZV IgG Antibody VZV IgM Antibody 05/28/22 05/28/22 05/28/22 12:37 13:08 13:55 WBC RBC Hgb Hct MCV MCH MCHC Plt Count D-Dimer Sodium Potassium Chloride Carbon Dioxide Anion Gap BUN Creatinine Est Cr Clr Drug Dosing Est GFR ( Amer) Est GFR (Non-Af Amer) BUN/Creatinine Ratio Glucose Estimat Average Glucose Hemoglobin A1c Calcium Phosphorus Magnesium Total Bilirubin AST ALT Alkaline Phosphatase Troponin I High Sens 14.6 H Total Protein Albumin Globulin Albumin/Globulin Ratio Sxutcxwhy-s-4,3-Gal IgE Pending TSH Beef Allergen IgE Ab Pending Beef ASM Class Pending Leblanc ASM Class Pending Leblanc/Mutton IgE Interp Pending Pork Allergen IgE Ab Pending Pork ASM Class Pending POC Ur Test Anaplasma Smear A. phagocytophilum DNA Babesia Smear Babesia microti IgG Ab Babesia microti IgM Ab Babesia microti DNA PCR Babesia Interpretation Lyme Disease IgG Ab Lyme IgG (Western Blot) Lyme IgG 18 kDa Band Lyme IgG 23 kDa Band Lyme IgG 28 kDa Band Lyme IgG 30 kDa Band Lyme IgG 39 kDa Band Lyme IgG 41 kDa Band Lyme IgG 45 kDa Band Lyme IgG 58 kDa Band Lyme IgG 66 kDa Band Lyme IgG 93 kDa Band Lyme IgM Ab (WB) Lyme Disease IgM Ab Lyme IgM 23 kDa Band Lyme IgM 39 kDa Band Lyme IgM 41 kDa Band Hepatitis A IgM Ab Hep Bs Antigen Hep Bs Ag Confirmation Hep B Core IgM Ab Hepatitis C Ab (EIA) Hep C Ab Signal/Cutoff SARS-CoV-2, RNA, NAAT NEGATIVE VZV IgG Antibody Pending VZV IgM Antibody Pending 05/28/22 05/28/22 05/28/22 13:55 14:40 16:08 WBC RBC Hgb Hct MCV MCH MCHC Plt Count D-Dimer Sodium Potassium Chloride Carbon Dioxide Anion Gap BUN Creatinine Est Cr Clr Drug Dosing Est GFR ( Amer) Est GFR (Non-Af Amer) BUN/Creatinine Ratio Glucose Estimat Average Glucose Hemoglobin A1c Calcium Phosphorus Magnesium Total Bilirubin AST ALT Alkaline Phosphatase Troponin I High Sens Total Protein Albumin Globulin Albumin/Globulin Ratio Ruwczowkb-t-3,3-Gal IgE TSH Beef Allergen IgE Ab Beef ASM Class Leblanc ASM Class Leblanc/Mutton IgE Interp Pork Allergen IgE Ab Pork ASM Class POC Ur Test NEG Anaplasma Smear A. phagocytophilum DNA Babesia Smear Babesia microti IgG Ab Babesia microti IgM Ab Babesia microti DNA PCR Babesia Interpretation Lyme Disease IgG Ab Lyme IgG (Western Blot) Lyme IgG 18 kDa Band Lyme IgG 23 kDa Band Lyme IgG 28 kDa Band Lyme IgG 30 kDa Band Lyme IgG 39 kDa Band Lyme IgG 41 kDa Band Lyme IgG 45 kDa Band Lyme IgG 58 kDa Band Lyme IgG 66 kDa Band Lyme IgG 93 kDa Band Lyme IgM Ab (WB) Lyme Disease IgM Ab Lyme IgM 23 kDa Band Lyme IgM 39 kDa Band Lyme IgM 41 kDa Band Hepatitis A IgM Ab Pending Hep Bs Antigen Pending Hep Bs Ag Confirmation Pending Hep B Core IgM Ab Pending Hepatitis C Ab (EIA) Pending Hep C Ab Signal/Cutoff Pending SARS-CoV-2, RNA, NAAT NEGATIVE VZV IgG Antibody VZV IgM Antibody 05/28/22 05/28/22 05/29/22 18:11 18:12 00:21 WBC RBC Hgb Hct MCV MCH MCHC Plt Count D-Dimer Sodium Potassium Chloride Carbon Dioxide Anion Gap BUN Creatinine Est Cr Clr Drug Dosing Est GFR ( Amer) Est GFR (Non-Af Amer) BUN/Creatinine Ratio Glucose Estimat Average Glucose Hemoglobin A1c Calcium Phosphorus 1.5 L* Magnesium Total Bilirubin AST ALT Alkaline Phosphatase Troponin I High Sens 11.9 10.9 Total Protein Albumin Globulin Albumin/Globulin Ratio Zpuecnigt-i-2,3-Gal IgE TSH Beef Allergen IgE Ab Beef ASM Class Leblanc ASM Class Leblanc/Mutton IgE Interp Pork Allergen IgE Ab Pork ASM Class POC Ur Test Anaplasma Smear A. phagocytophilum DNA Babesia Smear Babesia microti IgG Ab Babesia microti IgM Ab Babesia microti DNA PCR Babesia Interpretation Lyme Disease IgG Ab Lyme IgG (Western Blot) Lyme IgG 18 kDa Band Lyme IgG 23 kDa Band Lyme IgG 28 kDa Band Lyme IgG 30 kDa Band Lyme IgG 39 kDa Band Lyme IgG 41 kDa Band Lyme IgG 45 kDa Band Lyme IgG 58 kDa Band Lyme IgG 66 kDa Band Lyme IgG 93 kDa Band Lyme IgM Ab (WB) Lyme Disease IgM Ab Lyme IgM 23 kDa Band Lyme IgM 39 kDa Band Lyme IgM 41 kDa Band Hepatitis A IgM Ab Hep Bs Antigen Hep Bs Ag Confirmation Hep B Core IgM Ab Hepatitis C Ab (EIA) Hep C Ab Signal/Cutoff SARS-CoV-2, RNA, NAAT VZV IgG Antibody VZV IgM Antibody 05/29/22 05/29/22 05/29/22 06:10 06:10 06:10 WBC Pending RBC Pending Hgb Pending Hct Pending MCV Pending MCH Pending MCHC Pending Plt Count Pending D-Dimer Sodium 136 Potassium 3.6 Chloride 105 Carbon Dioxide 24 Anion Gap 7 BUN 5 L Creatinine 0.68 Est Cr Clr Drug Dosing 116.3 Est GFR ( Amer) 127.7 Est GFR (Non-Af Amer) 110.2 BUN/Creatinine Ratio 7.4 L Glucose 112 H Estimat Average Glucose 134 Hemoglobin A1c 6.3 H Calcium 8.4 L Phosphorus 3.9 D Magnesium 2.0 Total Bilirubin 0.4 AST 26 ALT 52 Alkaline Phosphatase 124 H Troponin I High Sens Total Protein 6.5 Albumin 3.4 Globulin 3.1 Albumin/Globulin Ratio 1.1 Mllxngxfg-u-8,3-Gal IgE TSH Beef Allergen IgE Ab Beef ASM Class Leblanc ASM Class Leblanc/Mutton IgE Interp Pork Allergen IgE Ab Pork ASM Class POC Ur Test Anaplasma Smear A. phagocytophilum DNA Babesia Smear Babesia microti IgG Ab Babesia microti IgM Ab Babesia microti DNA PCR Babesia Interpretation Lyme Disease IgG Ab Lyme IgG (Western Blot) Lyme IgG 18 kDa Band Lyme IgG 23 kDa Band Lyme IgG 28 kDa Band Lyme IgG 30 kDa Band Lyme IgG 39 kDa Band Lyme IgG 41 kDa Band Lyme IgG 45 kDa Band Lyme IgG 58 kDa Band Lyme IgG 66 kDa Band Lyme IgG 93 kDa Band Lyme IgM Ab (WB) Lyme Disease IgM Ab Lyme IgM 23 kDa Band Lyme IgM 39 kDa Band Lyme IgM 41 kDa Band Hepatitis A IgM Ab Hep Bs Antigen Hep Bs Ag Confirmation Hep B Core IgM Ab Hepatitis C Ab (EIA) Hep C Ab Signal/Cutoff SARS-CoV-2, RNA, NAAT VZV IgG Antibody VZV IgM Antibody
[2022-05-29 12:57] LABS: 18KDIGG Band REACTIVE; 23KDIGG Band REACTIVE; 23KDIGM Band REACTIVE; 28KDIGG Band NON-REACTIVE; 30KDIGG Band NON-REACTIVE; 39KDIGG Band REACTIVE; 39KDIGM Band REACTIVE; 41KDIGG Band REACTIVE; 41KDIGM Band REACTIVE; 45KDIGG Band NON-REACTIVE; 58KDIGG Band REACTIVE; 66KDIGG Band NON-REACTIVE; 93KDIGG Band NON-REACTIVE; Lyme Antibodies, WB IgG POSITIVE (NEGATIVE); Lyme Antibodies, WB IgM POSITIVE (NEGATIVE)
--- NOTE | 2022-05-29 14:01 | Hospitalist Progress Note ---
Date of Service May 29, 2022 Assessment & Plan (1) Syncope: (2) Complete heart block by electrocardiogram: (3) Elevated troponin: (4) Hypophosphatemia: (5) Elevated LFTs: (6) Positive Lyme disease serology: Plan 41-year-old lady with PMH of prediabetes and subclinical hypothyroidism presented to ED 05/28 secondary to syncope and found to have Lyme disease positive in the ED with complete heart block in the admitting EKG. Of note, patient travel to [place] almost a month ago [employer]. 1 week into the trip she developed symptoms concerning for right facial cellulitis/swelling/pain including right eye/hoahaoism/forehead for which she was treated with a course of Bactrim. After treatment, follow-up in the clinic, she was found to be Lyme positive on screening test. On the day of arrival she was walking her dog when she sustained a syncopal episode, does not know how long she had LOC, unwitnessed. 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 Patient with no chest pain. Admitting CTA with no evidence of PE. Has mild ill-defined right paratracheal soft tissue density/inflammatory change, will need 3-month chest CT follow-up to ensure resolution of this abnormality. Admitting echo with third-degree AV block, EF of 65 to 70%, no valvular disease. Admitting troponin minimally elevated but down trended. Follow-up admitting blood culture. Follow-up other tickborne serology test. Continued telemetry monitoring, continue with Rocephin 05/28. EKG daily, monitor NM interval. 05/29 EKG with NM interval 448. Maintain electrolytes K greater than 4, Mg greater than 2.0. Monitor other electrolytes and replete as appropriate. Cardiology on board, appreciate recommendation. Continue with IV ceftriaxone. Pacer pads in place. Abnormality on CT neck and chest Right paratracheal soft tissue density Right paratracheal soft tissue density/inflammatory change without focal lymphadenopathy. In setting of recent infectious illness will monitor closely she will need repeat CT neck/chest in 3 months consider autoimmune work up if persists Hypophosphatemia: Repleted, resolved Elevated LFTS: likely reactive in setting of underlying infectious process, possibly lyme. Acute hepatitis panel negative. ALT resolved, ALP downtrending. Pre diabetes a1c 5.8 05/24/21 a1c in a.m. monitor fasting glucose for now DVT ppx: SQ Lovenox Dispo: PCU FULL CODE PCP: Bobo Brambila Admission and Anticipated Discharge Date Admission Date: May 28, 2022 Subjective Patient seen and examined at bedside for likely Lyme carditis, heart block, syncope, hypophosphatemia, positive Lyme disease serology. Patient was lying in bed, on room air, NAD, no new acute events overnight. Patient reports eating okay. Patient does have dry cough which has been going on for last few weeks. Patient denies any chest pain or any further dizziness or headache while in hospital. Patient reports moving bowels okay. Per RN no new acute events overnight. Physical Exam Physical Exam: GENERAL: Alert and oriented x3. NAD, on RA. HEENT: No pallor, no icterus. Pupils equal, round and reactive to light. Oral mucosa moist. Superficial cervical lymphadenopathy x right neck NECK: No JVD, no neck masses. HEART: S1 and S2 heard. Bradycardia. No murmur, no gallop. RESPIRATORY SYSTEM: Normal AP diameter. No accessory muscle use. No wheezing, no crackles. ABDOMEN: Soft, bowel sounds present, nontender, no distention. CENTRAL NERVOUS SYSTEM: No facial droop. Speech is clear. Obeys simple commands. Moves extremities. EXTREMITIES: No edema, no erythema seen. Results & Data Results & Data ([facility]) Vital Signs (Past 12 Hours) Vital Signs Temp Pulse Pulse Resp BP Pulse Ox O2 Del Method 05/29/22 11:15 36.6 C 45 L 16 109/66 94 Room Air 05/29/22 07:56 41 L 05/29/22 07:53 Room Air 05/29/22 07:28 36.8 C 40 L 12 109/67 97 Room Air 05/29/22 04:23 36.7 C 43 L 18 101/56 L 96 Room Air
[2022-05-29 14:35] LABS: Basophils # (auto) 0.04 K/uL (0-0.2); Basophils % (auto) 0.4 %; Eosinophils # (auto) 0.08 K/uL (0-0.50); Eosinophils % (auto) 0.7 %; Hematocrit (blood only) 32.6 % (34.1-44.9); Hemoglobin 10.8 g/dl (12.0-16.0); Immature Granulocytes # (auto) 0.05 K/uL (0.00-0.02); Immature Granulocytes % (auto) 0.5 %; Lymphocytes # (auto) 2.51 K/uL (1.2-3.4); Lymphocytes % (auto) 23.4 %; Mean Corpuscular Hemoglobin 30.4 pg (25.0-34.0); Mean Corpuscular Hgb Conc 33.1 g/dL (32.0-36.0); Mean Corpuscular Volume 91.8 fL (80.0-100.0); Mean Platelet Volume 10.3 fL (9.4-12.3); Monocytes # (auto) 0.49 K/uL (0.24-0.82); Monocytes % (auto) 4.6 %; Neutrophils # (auto) 7.55 K/uL (1.4-6.5); Neutrophils % (auto) 70.4 %; Platelet Count 310 K/uL (130-400); RDW Coefficient of Variation 13.5 % (11.5-14.5); RDW Standard Deviation 45.2 fL (36.4-46.3); Red Blood Count 3.55 M/uL (3.93-5.22); White Blood Count 10.72 K/ul (4.8-10.8)
--- NOTE | 2022-05-29 16:45 | Electrocardiogram Report ---
Test Reason : Blood Pressure : / mmHG Vent. Rate : 042 BPM Atrial Rate : 042 BPM P-R Int : 448 ms QRS Dur : 078 ms QT Int : 512 ms P-R-T Axes : 074 092 -06 degrees QTc Int : 427 ms Sinus rhythm with 1st degree A-V block with 2:1 A-V conduction Rightward axis Low voltage QRS Septal infarct (cited on or before 28-MAY-2022) Abnormal ECG When compared with ECG of 28-MAY-2022 10:44, Sinus rhythm is no longer with complete heart block QRS duration has decreased T wave inversion less evident in Anterior leads Confirmed by Oj Moulton ([id number]) on 05/29/2022 4:44:49 PM Referred By: REFERRED SELF Confirmed By:Oj Moulton
[2022-05-29] MEDS: ENOXAPARIN INJ 40 MG/0.4 ML SYR SQ SCH (20:22)
[2022-05-30 09:19] LABS: Hematocrit (blood only) 36.2 % (34.1-44.9); Hemoglobin 12.1 g/dl (12.0-16.0); Mean Corpuscular Hgb Conc 33.4 g/dL (32.0-36.0); Mean Corpuscular Volume 89.8 fL (80.0-100.0); Platelet Count 348 K/uL (130-400); RDW Coefficient of Variation 13.2 % (11.5-14.5); RDW Standard Deviation 42.9 fL (36.4-46.3); Red Blood Count 4.03 M/uL (3.93-5.22); White Blood Count 9.59 K/ul (4.8-10.8)
[2022-05-30 09:37] LABS: BUN Creatinine Ratio 11.8 (10-20); Calcium 9.2 mg/dl (8.5-10.1); Creatinine Clr Calc Pharmacy 115.1 ml/min; Est GFR (African American) 127.7 ml/min; Est GFR (Non-African American) 110.2 ml/min
[2022-05-30] MEDS: cefTRIAXone SODIUM 2,000 MG in DEXTROSE 5% 50 ML IV SCH (09:45)
--- NOTE | 2022-05-30 11:02 | Cardiology Progress Note ---
Date of Service May 30, 2022 Assessment & Plan (1) Complete heart block by electrocardiogram: (2) Lyme carditis: Plan Patient is a 41-year-old female without prior history of cardiac disease presents now with recent symptoms of cellulitis and erysipelas of the right face and neck with residual lymphadenopathy and tenderness. Patient sought evaluation for persistent symptoms and low-grade fever yesterday. Initial IgM Lyme screen positive yesterday and today. Patient presents now after above findings and transient syncopal event this morning while walking dog. Initial EKG and telemetry demonstrates sinus rhythm with third-degree heart block with ventricular escape rhythm approximately 50 bpm Impression: Third-degree AV block with junctional escape rhythm today. Still with A-V dissociation but rare Possible capture Lyme carditis on appropriate therapies Recommendations: Continuous telemetry. No indications for temporary pacemaker Continue antibiotic therapy for Lyme carditis, titers positive Admission and Anticipated Discharge Date Admission Date: May 28, 2022 Subjective Patient seen and examined, chart, medications, telemetry reviewed Patient without acute complaints. Neck stiffness improved. No fever or chills. Telemetry continues to demonstrate third-degree heart block with junctional escape rhythm occasional captured atrial beat Review of Systems Review of Systems: All systems reviewed & are unremarkable except as noted in Subjective Physical Exam Constitutional: no acute distress Eyes: PERRL, conjunctivae normal, anicteric sclerae Neck: trachea midline, no thyromegaly Respiratory: normal respiratory effort, lungs clear to auscultation Cardiovascular: Rate/Rhythm: regular rate Heart Sounds: normal S1 and normal S2; no murmur Vessels: no JVD Extremities: no edema Gastrointestinal (Abdomen): normal bowel sounds, soft, nontender, no hepatosplenomegaly Musculoskeletal: no cyanosis or clubbing, extremities motor strength 5/5 Psychiatric: A+Ox3, euthymic affect Results & Data ([facility]) Vital Signs (Past 12 Hours) Vital Signs Temp Pulse Resp BP Pulse Ox O2 Del Method 05/30/22 07:29 36.5 C 63 16 115/75 99 Room Air 05/30/22 04:30 36.6 C 49 L 16 116/72 99 Room Air 05/29/22 23:10 36.6 C 40 L 16 111/64 96 Room Air Laboratory Results Laboratory Results - last 24 hr 05/28/22 05/28/22 05/29/22 10:33 13:55 06:10 WBC 10.72 RBC 3.55 L Hgb 10.8 L Hct 32.6 L MCV 91.8 MCH 30.4 MCHC 33.1 RDW Std Deviation 45.2 RDW Coeff of Armida 13.5 Plt Count 310 MPV 10.3 Immature Gran % (Auto) 0.5 Neut % (Auto) 70.4 Lymph % (Auto) 23.4 Garrard % (Auto) 4.6 Eos % (Auto) 0.7 Baso % (Auto) 0.4 Neut # (Auto) 7.55 H Lymph # (Auto) 2.51 Garrard # (Auto) 0.49 Eos # (Auto) 0.08 Baso # (Auto) 0.04 Immature Gran # (Auto) 0.05 H Sodium Potassium Chloride Carbon Dioxide Anion Gap BUN Creatinine Est Cr Clr Drug Dosing Est GFR ( Amer) Est GFR (Non-Af Amer) BUN/Creatinine Ratio Glucose Calcium Phosphorus Magnesium Lyme IgG (Western Blot) POSITIVE A Lyme IgG 18 kDa Band REACTIVE A Lyme IgG 23 kDa Band REACTIVE A Lyme IgG 28 kDa Band NON-REACTIVE Lyme IgG 30 kDa Band NON-REACTIVE Lyme IgG 39 kDa Band REACTIVE A Lyme IgG 41 kDa Band REACTIVE A Lyme IgG 45 kDa Band NON-REACTIVE Lyme IgG 58 kDa Band REACTIVE A Lyme IgG 66 kDa Band NON-REACTIVE Lyme IgG 93 kDa Band NON-REACTIVE Lyme IgM Ab (WB) POSITIVE A Lyme IgM 23 kDa Band REACTIVE A Lyme IgM 39 kDa Band REACTIVE A Lyme IgM 41 kDa Band REACTIVE A Hepatitis A IgM Ab NON-REACTIVE Hep Bs Antigen NON-REACTIVE Hep Bs Ag Confirmation TNP Hep B Core IgM Ab NON-REACTIVE Hepatitis C Ab (EIA) NON-REACTIVE Hep C Ab Signal/Cutoff 0.02 05/30/22 05/30/22 08:47 08:47 WBC 9.59 RBC 4.03 Hgb 12.1 Hct 36.2 MCV 89.8 MCH 30.0 MCHC 33.4 RDW Std Deviation 42.9 RDW Coeff of Armida 13.2 Plt Count 348 MPV 10.0 Immature Gran % (Auto) Neut % (Auto) Lymph % (Auto) Garrard % (Auto) Eos % (Auto) Baso % (Auto) Neut # (Auto) Lymph # (Auto) Garrard # (Auto) Eos # (Auto) Baso # (Auto) Immature Gran # (Auto) Sodium 137 Potassium 4.0 Chloride 106 Carbon Dioxide 24 Anion Gap 7 BUN 8 Creatinine 0.68 Est Cr Clr Drug Dosing 115.1 Est GFR ( Amer) 127.7 Est GFR (Non-Af Amer) 110.2 BUN/Creatinine Ratio 11.8 Glucose 108 H Calcium 9.2 Phosphorus 3.0 Magnesium 2.0 Lyme IgG (Western Blot) Lyme IgG 18 kDa Band Lyme IgG 23 kDa Band Lyme IgG 28 kDa Band Lyme IgG 30 kDa Band Lyme IgG 39 kDa Band Lyme IgG 41 kDa Band Lyme IgG 45 kDa Band Lyme IgG 58 kDa Band Lyme IgG 66 kDa Band Lyme IgG 93 kDa Band Lyme IgM Ab (WB) Lyme IgM 23 kDa Band Lyme IgM 39 kDa Band Lyme IgM 41 kDa Band Hepatitis A IgM Ab Hep Bs Antigen Hep Bs Ag Confirmation Hep B Core IgM Ab Hepatitis C Ab (EIA) Hep C Ab Signal/Cutoff
--- NOTE | 2022-05-30 12:53 | Hospitalist Progress Note ---
Date of Service May 30, 2022 Assessment & Plan (1) Syncope: (2) Complete heart block by electrocardiogram: (3) Elevated troponin: (4) Hypophosphatemia: (5) Elevated LFTs: (6) Positive Lyme disease serology: Plan per previous attending notes with addendum: 41-year-old lady with PMH of prediabetes and subclinical hypothyroidism presented to ED 05/28 secondary to syncope and found to have Lyme disease positive in the ED with complete heart block in the admitting EKG. Of note, patient travel to [place] almost a month ago [employer] ARCH[employer]. 1 week into the trip she developed symptoms concerning for right facial cellulitis/swelling/pain including right eye/spiritism/forehead for which she was treated with a course of Bactrim. After treatment, follow-up in the clinic, she was found to be Lyme positive on screening test. On the day of arrival she was walking her dog when she sustained a syncopal episode, does not know how long she had LOC, unwitnessed. 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 Patient with no chest pain. Admitting CTA with no evidence of PE. Has mild ill-defined right paratracheal soft tissue density/inflammatory change, will need 3-month chest CT follow-up to ensure resolution of this abnormality. Admitting echo with third-degree AV block, EF of 65 to 70%, no valvular disease. Admitting troponin minimally elevated but down trended. Follow-up admitting blood culture. Follow-up other tickborne serology test. Continued telemetry monitoring, continue with Rocephin 05/28. EKG daily, monitor RI interval. 05/29 EKG with RI interval 448. Maintain electrolytes K greater than 4, Mg greater than 2.0. Monitor other electrolytes and replete as appropriate. Cardiology on board, appreciate recommendation. Continue with IV ceftriaxone. Pacer pads in place. 05/30: still on 3rd degree av block continue Ceftriaxone 2g IV daily [facility] Nurse Practitioner consulted ID also consulted Abnormality on CT neck and chest Right paratracheal soft tissue density Right paratracheal soft tissue density/inflammatory change without focal lymphadenopathy. In setting of recent infectious illness will monitor closely she will need repeat CT neck/chest in 3 months consider autoimmune work up if persists Hypophosphatemia: Repleted, resolved Elevated LFTS: likely reactive in setting of underlying infectious process, possibly lyme. Acute hepatitis panel negative. ALT resolved, ALP downtrending. Pre diabetes a1c --> 6.3 diet outpatient ff up DVT ppx: SQ Lovenox Dispo: PCU FULL CODE PCP: Bobo Brambila plan of care discussed with patient in detail and at length all questions answered she is understanding, agreeable, comfortable with the plan of care Admission and Anticipated Discharge Date Admission Date: May 28, 2022 Subjective ff up for lyme carditis, etc seen sitting up in bed, comfortable states she continues to feel improved no lightheadedness, presyncope/syncope while admitted no chest pain, dyspnea, palpitations, dizziness no fever/chills, headache, arthralgias, myalgias, nausea/vomiting no other symptoms Review of Systems Review of Systems: all noted and negative except for above Physical Exam Physical Exam: General- oriented x 3, not in distress, speaks in sentences with no effort or accessory muscle use Head- atraumatic Eyes- PERRL, EOMI, anicteric ENT- oropharynx clear Neck- supple, no JVD, no adenopathy palpated, no thyromegaly; carotids +2/2, no bruits appreciated Lungs- clear to auscultation bilaterally, no rales/wheezes Heart- normal rate, regular rhythm; no murmur, no gallop, no rub appreciated Abdomen- normal bowel sounds, nondistended, soft, nontender, no masses or hepatosplenomegaly Extremities- no pretibial edema, no calf tenderness; peripheral pulses intact Neuro- alert, oriented x 3; CN 2-12 grossly intact; motor 5/5 bilat erally;sensation 100% on all extremities; no other gross focal neurologic deficits Skin- warm & dry Results & Data Results & Data ([facility]) Vital Signs (Past 12 Hours) Vital Signs Temp Pulse Resp BP Pulse Ox O2 Del Method 05/30/22 11:35 36.4 C L 50 L 18 119/80 93 Room Air 05/30/22 07:29 36.5 C 63 16 115/75 99 Room Air 05/30/22 04:30 36.6 C 49 L 16 116/72 99 Room Air all noted and reviewed including below
[2022-05-30] MEDS: ENOXAPARIN INJ 40 MG/0.4 ML SYR SQ SCH (21:16)
--- NOTE | 2022-05-30 22:45 | Electrocardiogram Report ---
Test Reason : Blood Pressure : / mmHG Vent. Rate : 056 BPM Atrial Rate : 065 BPM P-R Int : 000 ms QRS Dur : 090 ms QT Int : 566 ms P-R-T Axes : 084 087 -17 degrees QTc Int : 546 ms Sinus rhythm with 2nd degree A-V block (Mobitz I) Low voltage QRS T wave abnormality, consider inferior ischemia Prolonged QT Abnormal ECG When compared with ECG of 29-MAY-2022 05:37, Sinus rhythm is now with 2nd degree A-V block (Mobitz I) QT has lengthened Confirmed by Josue Fregoso ([id number]) on 05/30/2022 10:45:14 PM Referred By: REFERRED SELF Confirmed By:Josue Fregoso
[2022-05-31] MEDS: cefTRIAXone SODIUM 2,000 MG in DEXTROSE 5% 50 ML IV SCH (08:18)
--- NOTE | 2022-05-31 10:45 | Hospitalist Progress Note ---
Date of Service May 31, 2022 Assessment & Plan (1) Syncope: (2) Complete heart block by electrocardiogram: (3) Elevated troponin: (4) Hypophosphatemia: (5) Elevated LFTs: (6) Positive Lyme disease serology: Plan per previous attending notes with addendum: 41-year-old lady with PMH of prediabetes and subclinical hypothyroidism presented to ED 05/28 secondary to syncope and found to have Lyme disease positive in the ED with complete heart block in the admitting EKG. Of note, patient travel to [place] almost a month ago [employer]. 1 week into the trip she developed symptoms concerning for right facial cellulitis/swelling/pain including right eye/scientology/forehead for which she was treated with a course of Bactrim. After treatment, follow-up in the clinic, she was found to be Lyme positive on screening test. On the day of arrival she was walking her dog when she sustained a syncopal episode, does not know how long she had LOC, unwitnessed. 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 Patient with no chest pain. Admitting CTA with no evidence of PE. Has mild ill-defined right paratracheal soft tissue density/inflammatory change, will need 3-month chest CT follow-up to ensure resolution of this abnormality. Admitting echo with third-degree AV block, EF of 65 to 70%, no valvular disease. Admitting troponin minimally elevated but down trended. Follow-up admitting blood culture. Follow-up other tickborne serology test. Continued telemetry monitoring, continue with Rocephin 05/28. EKG daily, monitor MT interval. 05/29 EKG with MT interval 448. Maintain electrolytes K greater than 4, Mg greater than 2.0. Monitor other electrolytes and replete as appropriate. Cardiology on board, appreciate recommendation. Continue with IV ceftriaxone. Pacer pads in place. 05/31: sinus prabhu with 1st deg AV block per EKG this AM continue Ceftriaxone 2g IV daily Maintenance Craftsman consulted awaiting ID recommendations Abnormality on CT neck and chest Right paratracheal soft tissue density Right paratracheal soft tissue density/inflammatory change without focal lymphadenopathy. In setting of recent infectious illness will monitor closely she will need repeat CT neck/chest in 3 months consider autoimmune work up if persists Hypophosphatemia: Repleted, resolved Elevated LFTS: likely reactive in setting of underlying infectious process, possibly lyme. Acute hepatitis panel negative. ALT resolved, ALP downtrending. Pre diabetes a1c --> 6.3 diet outpatient ff up DVT ppx: SQ Lovenox Dispo: PCU FULL CODE PCP: Bobo Brambila plan of care discussed with patient in detail and at length all questions answered she is understanding, agreeable, comfortable with the plan of care Admission and Anticipated Discharge Date Admission Date: May 28, 2022 Subjective ff up for lyme carditis, etc seen resting in chair comfortable states she feels fine overall ambulating well no presyncope/syncope no chest pain, dyspnea, palpitations, dizziness no fever/chills no other symptoms Review of Systems Review of Systems: all noted and negative except for above Physical Exam Physical Exam: General- oriented x 3, not in distress, speaks in sentences with no effort or accessory muscle use Eyes- anicteric Neck- no JVD Lungs- clear breath sounds bilaterally, no rales/wheezes Heart- mild bradycardia, regular rhythm; no murmurs Abdomen- normal bowel sounds, nondistended, soft, nontender Extremities- no pretibial edema, no calf tenderness Neuro- alert, oriented x 3; no gross focal neurologic deficits Skin- warm & dry Results & Data Results & Data ([facility]) Vital Signs (Past 12 Hours) Vital Signs Temp Pulse Resp BP Pulse Ox O2 Del Method 05/31/22 07:31 36.5 C 54 L 18 110/70 97 Room Air 05/31/22 03:28 36.5 C 59 L 16 110/67 97 Room Air 05/30/22 23:11 36.5 C 61 16 115/71 99 Room Air 05/30/22 23:20 Room Air all noted and reviewed including below
--- NOTE | 2022-05-31 11:21 | Electrocardiogram Report ---
Test Reason : Blood Pressure : / mmHG Vent. Rate : 054 BPM Atrial Rate : 054 BPM P-R Int : 440 ms QRS Dur : 090 ms QT Int : 500 ms P-R-T Axes : 063 086 -06 degrees QTc Int : 474 ms Sinus bradycardia with 1st degree A-V block Low voltage QRS Abnormal ECG When compared with ECG of 30-MAY-2022 04:37, Sinus rhythm is no longer with 2nd degree A-V block (Mobitz I) QT has shortened Confirmed by Oj Moulton ([id number]) on 05/31/2022 11:20:57 AM Referred By: REFERRED SELF Confirmed By:Oj Moulton
--- NOTE | 2022-05-31 13:47 | Cardiology Progress Note ---
Date of Service May 31, 2022 Assessment & Plan (1) Complete heart block by electrocardiogram: (2) Lyme carditis: Plan Patient is a 41-year-old female without prior history of cardiac disease presents now with recent symptoms of cellulitis and erysipelas of the right face and neck with residual lymphadenopathy and tenderness. Patient sought evaluation for persistent symptoms and low-grade fever yesterday. Initial IgM Lyme screen positive yesterday and today. Patient presents now after above findings and transient syncopal event this morning while walking dog. Initial EKG and telemetry demonstrates sinus rhythm with third-degree heart block with ventricular escape rhythm approximately 50 bpm Impression: 1. 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 Telemetry and EKG now reflect sinus mechanism with marked first- degree AV block Recommendations: Continuous telemetry. Would continue at least an additional 24 hours. Would like to see some improvement in CO interval. Overall clinically improved Continue antibiotic therapy for Lyme carditis, titers positive Admission and Anticipated Discharge Date Admission Date: May 28, 2022 Subjective Patient was seen and examined, chart, medications, telemetry reviewed Overall continues to feel improved. Telemetry and EKG now reflect sinus rhythm with marked first-degree AV block No dizziness or lightheadedness Neck pain and discomfort has improved Review of Systems Review of Systems: All systems reviewed & are unremarkable except as noted in Subjective Physical Exam Constitutional: no acute distress Eyes: PERRL, conjunctivae normal, anicteric sclerae Neck: trachea midline, no thyromegaly Respiratory: normal respiratory effort, lungs clear to auscultation Cardiovascular: Rate/Rhythm: regular rate and regular rhythm Heart Sounds: normal S1 and normal S2; no murmur Vessels: no JVD Extremities: no edema Gastrointestinal (Abdomen): normal bowel sounds, soft, nontender, no hepatosplenomegaly Musculoskeletal: no cyanosis or clubbing, extremities motor strength 5/5 Psychiatric: A+Ox3, euthymic affect Results & Data ([facility]) Vital Signs (Past 12 Hours) Vital Signs Temp Pulse Resp BP Pulse Ox O2 Del Method 05/31/22 11:51 36.6 C 54 L 16 114/77 97 Room Air 05/31/22 07:31 36.5 C 54 L 18 110/70 97 Room Air 05/31/22 03:28 36.5 C 59 L 16 110/67 97 Room Air ECG Additional Comments: 31-MAY-2022 05:28:59 [facility] Sinus bradycardia with 1st degree A-V block Low voltage QRS Abnormal ECG When compared with ECG of 30-MAY-2022 04:37, Sinus rhythm is no longer with 2nd degree A-V block (Mobitz I) QT has shortened Confirmed by Oj Moulton ([id number]) on 05/31/2022 11:20:57 AM
[2022-05-31 14:22] LABS: Babesia microti DNA Not Detected (Not Detected)
[2022-05-31] MEDS: ENOXAPARIN INJ 40 MG/0.4 ML SYR SQ SCH (20:30)
[2022-05-31 23:17] LABS: Pork (SUS SPP) Class 0
[2022-06-01] MEDS: cefTRIAXone SODIUM 2,000 MG in DEXTROSE 5% 50 ML IV SCH (08:01)
--- NOTE | 2022-06-01 09:51 | Electrocardiogram Report ---
Test Reason : Blood Pressure : / mmHG Vent. Rate : 057 BPM Atrial Rate : 057 BPM P-R Int : 370 ms QRS Dur : 086 ms QT Int : 466 ms P-R-T Axes : -04 -20 045 degrees QTc Int : 453 ms Sinus bradycardia with 1st degree A-V block Low voltage QRS Nonspecific T wave abnormality Abnormal ECG When compared with ECG of 31-MAY-2022 05:28, T wave inversion no longer evident in Inferior leads Confirmed by Jaems Taylor ([id number]) on 06/01/2022 9:50:47 AM Referred By: REFERRED SELF Confirmed By:James Taylor
--- NOTE | 2022-06-01 14:33 | Hospitalist Progress Note ---
Date of Service June 01, 2022 Assessment & Plan (1) Syncope: (2) Complete heart block by electrocardiogram: (3) Elevated troponin: (4) Hypophosphatemia: (5) Elevated LFTs: (6) Positive Lyme disease serology: Plan per previous attending notes with addendum: 41-year-old lady with PMH of prediabetes and subclinical hypothyroidism presented to ED 05/28 secondary to syncope and found to have Lyme disease positive in the ED with complete heart block in the admitting EKG. 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 1 week into the trip she developed symptoms concerning for right facial cellulitis/swelling/pain including right eye/catholic/forehead for which she was treated with a course of Bactrim. After treatment, follow-up in the clinic, she was found to be Lyme positive on screening test. On the day of arrival she was walking her dog when she sustained a syncopal episode, does not know how long she had LOC, unwitnessed. 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 Patient with no chest pain. Admitting CTA with no evidence of PE. Has mild ill-defined right paratracheal soft tissue density/inflammatory change, will need 3-month chest CT follow-up to ensure resolution of this abnormality. Admitting echo with third-degree AV block, EF of 65 to 70%, no valvular disease. Admitting troponin minimally elevated but down trended. Follow-up admitting blood culture. Follow-up other tickborne serology test. Continued telemetry monitoring, continue with Rocephin 05/28. EKG daily, monitor ND interval. 05/29 EKG with ND interval 448. Maintain electrolytes K greater than 4, Mg greater than 2.0. Monitor other electrolytes and replete as appropriate. Cardiology on board, appreciate recommendation. Continue with IV ceftriaxone. Pacer pads in place. 06/01 sinus prabhu with 1st deg AV block per EKG this AM ND interval improved to 370 asymptomatic, ambulating well given 4 days of Ceftriaxone 2g IV daily Technical Support Assistant consulted, cleared for discharge today recommend Doxycycline 100mg BID x 14 days ff up with Cardiology in 2 weeks ff up with PCP in [address] neck and chest Right paratracheal soft tissue density Right paratracheal soft tissue density/inflammatory change without focal lymphadenopathy. In setting of recent infectious illness will monitor closely she will need repeat CT neck/chest in 3 months consider autoimmune work up if persists Hypophosphatemia: Repleted, resolved Elevated LFTS: likely reactive in setting of underlying infectious process, possibly lyme. Acute hepatitis panel negative. ALT resolved, ALP downtrending. repeat LFTs in 1 week on ff up with PCP Pre diabetes a1c --> 6.3 diet outpatient ff up DVT ppx: SQ Lovenox Dispo: PCU FULL CODE PCP: Bobo Brambila plan of care discussed with patient in detail and at length all questions answered she is understanding, agreeable, comfortable with the plan of care Admission and Anticipated Discharge Date Admission Date: May 28, 2022 Subjective ff up for lyme carditis, etc seen sitting up in chair, comfortable in good spirits states she feels fine overall no chest pain, dyspnea, palpitations, dizziness ambulating in the halls with no problems no headache, fever/chills, nausea/vomiting no other symptoms Review of Systems Review of Systems: all noted and negative except for above Physical Exam Physical Exam: General- oriented x 3, not in distress, speaks in sentences with no effort or accessory muscle use Eyes- anicteric Neck- no JVD Lungs- clear breath sounds bilaterally, no rales/wheezes Heart- normal rate, regular rhythm; no murmurs Abdomen- normal bowel sounds, nondistended, soft, nontender Extremities- no pretibial edema, no calf tenderness Neuro- alert, oriented x 3; no gross focal neurologic deficits Skin- warm & dry Results & Data Results & Data ([facility]) Vital Signs (Past 12 Hours) Vital Signs Temp Pulse Resp BP Pulse Ox O2 Del Method 06/01/22 11:28 37.0 C 99 H 20 118/85 95 Room Air 06/01/22 07:59 36.5 C 57 L 18 114/75 98 Room Air 06/01/22 03:42 36.5 C 62 16 113/72 97 Room Air
--- NOTE | 2022-06-01 14:51 | Discharge Summary ---
Date of Service June 01, 2022 Admission HPI Per Admitting Provider This is a 41 yr old F who has significant PMH of pre diabetes and subclinical hypothyroidism who presents to ED 2/2 to syncope x 1 day. 1 month ago she was in [place]. Her sx started while in [place] about a week into the trip. She developed swelling, redness, pain to R face/neck, tenderness to pain in R temporal region and swelling of neck. She also complains of sensitivity to light and pain with moving eye to L. She was placed on bactrim due to concern for MRSA which helped with swelling, but was told to stop this yesterday. She has had persistent lymphadenopathy to right Neck. She has been having off and on low grade fever, tmax 100.8. Last fever was 2-3 days ago. Fever tends to occur in evening. She also has pain to neck moving side to side but not flexion/extension. For the past week she has been having SOB with exertion. She denies any swelling to legs. She denies any rash. She did have a red, flat rash on L anterior thigh but was not bullet like. This resolved on own and she feels was related to the sun. She denies any current N/V but 3 weeks ago she did have n/v. Today she passed out in the grass when out with her dog. She is unsure how long. It was unwitnessed. She woke up on own and wasn't quite sure where sure was or what happened. Denies incontinence of bowel or bladder. Denies any pre syncope of lightheaded/dizzy. She has hx of pre diabetes and subclinical hypothyroidism. She does not take any meds for this. Other than travel to [place] she denies any recent travel to [place] or [place]. She did recently travel to and from [place] so was sitting for prolonged period. She denies any chills or sweats, chest pain, palpitations, URI sx, n/v/d, abd, dysuria, increased urg/freq with urination, melena or hematochezia. She denies possibility of as she had her period 1 week ago and was normal for her. Also her had a vasectomy and they have not been sexually active with since last period. 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 Discharge Exam General- oriented x 3, not in distress, speaks in sentences with no effort or accessory muscle use Eyes- anicteric Neck- no JVD Lungs- clear breath sounds bilaterally, no rales/wheezes Heart- normal rate, regular rhythm; no murmurs Abdomen- normal bowel sounds, nondistended, soft, nontender Extremities- no pretibial edema, no calf tenderness Neuro- alert, oriented x 3; no gross focal neurologic deficits Skin- warm & dry Discharge Data Allergies Allergy/AdvReac Type Severity Reaction Status Date / Time No Known Allergies Allergy Unknown Verified 05/28/22 12:01 Consultations 05/28/22 12:30 Consult Cardiology Routine 05/30/22 07:55 Consult Infectious Diseases Routine Ordered Studies 05/28/22 12:01 CT angio chest PE protocol Stat CHEST CTA for PULMONARY ARTERIES CT DOSE: 661.97 mGy.cm HISTORY: Progressive shortness of breath. PE TECHNIQUE: Multiaxial CT images of the chest were performed following the intravenous administration of contrast to evaluate the pulmonary arteries. Maximal intensity projection images were also obtained. A dose lowering technique was utilized adhering to the principles of ALARA. COMPARISON STUDY: Chest 05/28/2022. FINDINGS: Limited views of the upper abdomen demonstrate normal liver and spleen. The thyroid gland enhances normally. Normal esophagus. The heart is normal in size. No pleural or pericardial effusions. There is mild ill-defined right paratracheal soft tissue density/inflammatory change without focal lymphadenopathy. No associated mass effect. No hilar lymphadenopathy. Normal caliber thoracic aorta with no evidence for dissection. No filling defects within the pulmonary arteries to suggest a pulmonary embolus. No fractures within the visualized osseous structures. The central airways are patent. No focal lung consolidations to suggest pneumonia. IMPRESSION: 1. No evidence for pulmonary embolus. 2. Mild ill-defined right paratracheal soft tissue density/inflammatory change without focal lymphadenopathy. No associated mass effect. This is nonspecific and could be due to a mediastinitis. Infiltrative soft tissue could also have a similar appearance. Therefore, [address] follow-up recommended to ensure resolution of this abnormality. ACT 112: Positive. There are findings on this exam that require communication between the performing entity and the patient following Patient Test Result Information Act ([place] Act 112) guidelines. Electronically signed by: Florentin Lux M.D. 05/28/2022 1:45 PM 05/28/22 12:24 CT neck soft tissues [CT soft tissue neck w con] Stat CT SCAN OF THE NECK WITH IV CONTRAST CLINICAL HISTORY: Lymphadenopathy. COMPARISON STUDY: No priors. TECHNIQUE: Following the IV administration of 120 cc of Optiray 320, CT scan of the soft tissues of the neck was performed from the skull base to the upper chest. Images are reviewed in the axial, sagittal, and coronal planes. IV contrast was administered without complication. A dose lowering technique was utilized adhering to the principles of ALARA. FINDINGS: Pharynx: The pharyngeal soft tissues are normal as visualized. The pharyngeal airway is widely patent. There is no evidence of mass lesion. The vocal cords are symmetric. The parapharyngeal fat is well maintained. The prevertebral/retropharyngeal soft tissues are within normal limits. The epiglo ttis is normal. Lymphadenopathy: There are numerous shotty cervical lymph nodes. These are not pathologically enlarged by size criteria and measure up to 10 mm in length. Thyroid: Normal in size and attenuation. Salivary glands: The parotid and submandibular glands are within normal limits. Brain parenchyma: The visualized brain parenchyma at the skull base is normal in appearance. Vascular structures: The carotid arteries and jugular veins are patent bilaterally. Skeletal structures: Imaged portions of the calvarium at the skull base are within normal limits. The cervical spine appears intact. Sinuses and mastoids: There is trace mucosal thickening within the maxillary antra. The remaining visualized paranasal sinuses are clear. The mastoid air cells are well pneumatized. Upper chest: Visualized apical lung parenchyma is clear. Infiltration is noted in the superior mediastinum to the level of the thoracic outlet. IMPRESSION: 1. Nonspecific soft tissue and inflammation is seen in the superior mediastinum to the level of the thoracic outlet. This could be seen in the setting of mediastinitis. Clinical correlation will be essential. 2. Numerous shotty cervical lymph nodes are nonspecific and likely reactive. Clinical follow-up to resolution is recommended. If these lymph nodes fail to resolve Realtime course then a repeat examination should be performed. 3. No pathologically enlarged cervical lymph nodes are identified. 4. The pharyngeal soft tissues are normal as visualized. ACT 112: Negative or not required by law. Electronically signed by: Yordan Langford M.D. 05/28/2022 1:41 PM Hospital Course (1) Syncope: (2) Complete heart block by electrocardiogram: (3) Elevated troponin: (4) Hypophosphatemia: (5) Elevated LFTs: (6) Positive Lyme disease serology: Plan per previous attending notes with addendum: 41-year-old lady with PMH of prediabetes and subclinical hypothyroidism presented to ED 05/28 secondary to syncope and found to have Lyme disease positive in the ED with complete heart block in the admitting EKG. Of note, patient travel to [place] almost a month ago [employer]. 1 week into the trip she developed symptoms concerning for right facial cellulitis/swelling/pain including right eye/sabianism/forehead for which she was treated with a course of Bactrim. After treatment, follow-up in the clinic, she was found to be Lyme positive on screening test. On the day of arrival she was walking her dog when she sustained a syncopal episode, does not know how long she had LOC, unwitnessed. 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 Patient with no chest pain. Admitting CTA with no evidence of PE. Has mild ill-defined right paratracheal s oft tissue density/inflammatory change, will need 3-month chest CT follow-up to ensure resolution of this abnormality. Admitting echo with third-degree AV block, EF of 65 to 70%, no valvular disease. Admitting troponin minimally elevated but down trended. 06/01 Given Ceftriaxone IV, EKG monitored, Store Person consulted Heart block resolved sinus prabhu with 1st deg AV block on discharge day OH interval improved to 370 asymptomatic, ambulating well given 4 days of Ceftriaxone 2g IV daily Store Person consulted, cleared for discharge today recommend Doxycycline 100mg BID x 14 days ff up with Cardiology in 2 weeks ff up with PCP in [address] neck and chest Right paratracheal soft tissue density Right paratracheal soft tissue density/inflammatory change without focal lymphadenopathy. In setting of recent infectious illness will monitor closely she will need repeat CT neck/chest in 3 months consider autoimmune work up if persists 1. Nonspecific soft tissue and inflammation is seen in the superior mediastinum to the level of the thoracic outlet. This could be seen in the setting of mediastinitis. Clinical correlation will be essential. 2. Numerous shotty cervical lymph nodes are nonspecific and likely reactive. Clinical follow-up to resolution is recommended. If these lymph nodes fail to resolve Realtime course then a repeat examination should be performed. Please refer to full report in the Ordered Studies section above Further work up, management, and ff up as outpatient Hypophosphatemia: Repleted, resolved Elevated LFTS: likely reactive in setting of underlying infectious process, possibly lyme. Acute hepatitis panel negative. ALT resolved, ALP downtrending. repeat LFTs in 1 week on ff up with PCP Pre diabetes a1c --> 6.3 diet outpatient ff up DVT ppx: SQ Lovenox Dispo:d/c home ff up with PCP in 1 week ff up with Store Person in 2 weeks plan of care discussed with patient in detail and at length all questions answered she is understanding, agreeable, comfortable with the plan of care Total Time Total Time Spent Total Time Spent (In Minutes): >30 minutes Discharge Plan Discharge Items Patient Disposition: Home - Self-Care Reason For Visit: THIRD DEGREE HEART BLOCK, LYME CARDITIS Discharge Diagnosis: Third-degree heart block Secondary to Lyme disease, Lyme carditis Activity: Resume your previous activity Activity Comment: Resume activity gradually as tolerated Lifting: Wait until after follow-up appointment Exercise/Sports: Wait until after follow-up appointment Driving/Machine Use: No driving until reevaluated by primary care physician Non-emergency contact: Primary Care Provider and Store Person Call non-emergency contact if: you have any medication questions, your symptoms worsen, your pain is not controlled, your pain is worsening, your pain is unusual for you, your pain is concerning for you and you have a fever Follow-up/Referrals: Roberto Olivares MD [Physician] - Bobo Brambila DO [Primary Care Provider] - Diet: Regular Addtl Attending Provider Instructions: PLEASE REFER TO YOUR NEW MEDICATION LIST AND FOLLOW INSTRUCTIONS CAREFULLY. YOUR NEW MEDICATIONS INCLUDE: Doxycycline-antibiotic for Lyme disease, Lyme carditis Please make sure to take this antibiotic as directed and complete the course to ensure complete treatment of your medical condition. Take a probiotic and include yogurt in your daily diet for at least 1 month to prevent C. difficile diarrhea. Drink 6 to 8 glasses of water every day to maintain hydration. PLEASE CALL YOUR PRIMARY CARE PHYSICIAN OR RETURN TO THE ER IF WITH WORSENING OF SYMPTOMS, INCLUDING Chest pain, shortness of breath, dizziness, weakness, fevers or chills. FOLLOW UP WITH PRIMARY CARE PHYSICIAN in 1 week. The clinic will be calling you for the appointment soon. Follow-up with [facility] insurance service representative Dr. Roberto Olivares in 2 weeks. Please call his office to set up an appointment. Contact information noted above. Pending Studies at Discharge: Yes Studies:: REPEAT CT SCAN OF THE NECK IN 3 MONTHS TO REEVALUATE TRACHEAL DENSITY. Stand-Alone Forms: My [facility] [employer], Smoking Cessation Medications and DC Order Prescriptions: New doxycycline hyclate 100 mg capsule 100 mg PO BID 14 Days Qty: 28 0RF Continued acetaminophen 500 mg Tablet 500 mg PO Q6H PRN (Reason: Pain) Discontinued sulfamethoxazole-trimethoprim 800-160 mg tablet 1 tab PO BID Discharge Orders: Discharge Order (Routine); Ordered 06/01/22 Ordered By: Jasiel Ludwig/Other Patient Handouts: Prediabetes Admission Data Admit Date/Time: 05/28/22 12:30 Attending Provider: Jasiel Ivroy Admit Provider: Joselin Monteiro Primary Care Provider: Bobo Brambila Other Providers: Roberto Olivares ; Nadira Sidhu Carlos M. ; Dread Ortiz ; Romeo Mejia I. ; Sagar Garrido II ; Debbie Salguero ; Prakash Blood ; Ablert Nunn Other Interventions: Discharge Summary Assessment (RN) Last Done: 06/01/22 14:54
--- NOTE | 2022-06-01 15:07 | Cardiology Progress Note ---
Date of Service June 01, 2022 Assessment & Plan (1) Complete heart block by electrocardiogram: (2) Lyme carditis: Plan Patient is a 41-year-old female without prior history of cardiac disease presents now with recent symptoms of cellulitis and erysipelas of the right face and neck with residual lymphadenopathy and tenderness. Patient sought evaluation for persistent symptoms and low-grade fever yesterday. Initial IgM Lyme screen positive yesterday and today. Patient presents now after above findings and transient syncopal event this morning while walking dog. Initial EKG and telemetry demonstrates sinus rhythm with third-degree heart block with ventricular escape rhythm approximately 50 bpm Impression: 1. 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 Telemetry and EKG now reflect sinus mechanism with first-degree AV block which is improved from yesterday Recommendations: Okay to discharge to home from cardiac standpoint. Recommend 14 days of doxycycline given the cardiac complications due to her Lyme disease. Should follow-up in the cardiology office within 1 month. Admission and Anticipated Discharge Date Admission Date: May 28, 2022 Subjective Patient seen and examined, chart reviewed, family at bedside. States she feels back to baseline and denies any chest pain, shortness of breath, palpitations, lightheadedness, dizziness or syncope. Telemetry reviewed: Sinus rhythm with first-degree AV block Review of Systems Review of Systems: All systems reviewed & are unremarkable except as noted in HPI & below Physical Exam Physical Exam: Physical Exam: General: Awake, alert and oriented x 3. No acute distress. HEENT: Normocephalic, atraumatic. Pupils equal, round and reactive to light and accommodation. Extraocular muscles are intact. Anicteric sclera. Moist mucous membranes. Neck: No JVD. No bruit. Cardiovascular: Regular. No S-4. Normal S-1 and S-2. No S-3. No murmurs, rubs or gallops. Pulmonary: Clear to auscultation bilaterally. No rales, rhonchi, or wheezing. Abdomen: Bowel sounds x 4, soft. No rebound, guarding or tenderness. No organomegaly. Extremities: No clubbing, cyanosis or edema. +2 pedal pulses bilaterally. Skin: Warm and dry. Results & Data ([facility]) Vital Signs (Past 12 Hours) Vital Signs Temp Pulse Resp BP BP Pulse Ox O2 Del Method 06/01/22 14:54 37.0 C 99 H 20 118/85 119/79 95 06/01/22 11:28 37.0 C 99 H 20 118/85 95 Room Air 06/01/22 07:59 36.5 C 57 L 18 114/75 98 Room Air 06/01/22 03:42 36.5 C 62 16 113/72 97 Room Air
[2022-06-04 17:09] LABS: Babesia microti IgG <1:64 titer (<1:64)
== END 2022-06-01 15:33 | disposition home or self-care (01) | DRG 868 ==
LOC: ED 10:07 → EDINP 12:30 → SUATTDRO 12:30 → EDINP 13:45 → 2S 20:33